=== PATIENT | male | born 1945 | race Caucasian/White ===

== ENCOUNTER → 2020-12-24 09:34 | Outpatient (CLI) | payer MEDICARE, OTHER, SELFPAY ==
--- NOTE | ~2020-12-24 | XR_ITS ---
EXAMINATION: XR chest 2V DATE: 12/24/2020 09:50 INDICATION: Cough TECHNIQUE: PA and lateral views of the chest are obtained. COMPARISON: 11/17/2017 FINDINGS: The lungs are hyperinflated. There is minimal opacity in the right lower lobe posteriorly. There is no pleural effusion or pneumothorax. The cardiomediastinal silhouette is normal. There is mi ld thoracic spondylosis. IMPRESSION: 1. Minimal airspace opacity of the right lower lobe which could reflect atelectasis or pneumonia. Rec ommend followup radiographs in 10-14 days after appropriate therapy to evaluate for improvement/resol ution. Reviewed, dictated and finalized at location B. IMPRESSION: 1. Minimal airspace opacity of the right lower lobe which could reflect atelect asis or pneumonia. Recommend followup radiographs in 10-14 days after appropria te therapy to evaluate for improvement/resolution.
== END ==
PROVIDERS: PCP Family Medicine; Visit Provider Family Medicine
DX: R05 Cough (principal); R91.8 Other nonspecific abnormal finding of lung field
CPT/HCPCS: 71046

== ENCOUNTER → 2021-01-11 09:25 | Outpatient (CLI) | payer MEDICARE, OTHER, SELFPAY ==
--- NOTE | ~2021-01-11 | XR_ITS ---
EXAMINATION: XR chest 2V EXAM DATE: 01/11/2021 09:42 INDICATION: J98.11 - Atelectasis cough, smoker 1ppd. TECHNIQUE: Frontal and lateral projections of the chest obtained and reviewed. Comparison is made to prior examination from 12/24/20. FINDINGS: The lungs are hyperinflated which can be seen with chronic obstructive pulmonary disease ( a clinical diagnosis of functional impairment), but is not diagnostic of it. Right basilar granuloma. Some regions of right upper lobe greater than left scarring, unchanged. Narrow cardiac silhouette. T here are no osseous abnormalities identified. IMPRESSION: 1. Severe chronic hyperinflation. 2. Postinfectious residua. Reviewed, dictated and finalized at location B.
== END ==
PROVIDERS: PCP Nurse Practitioner Family; Visit Provider Nurse Practitioner Family
DX: J98.11 Atelectasis (principal); R05 Cough; R91.8 Other nonspecific abnormal finding of lung field
CPT/HCPCS: 71046

== ENCOUNTER 2024-10-05 09:27 | Inpatient (IN) | payer MEDICARE, OTHER, SELFPAY ==
[2024-10-05] VITALS (13 sets, daily range): BP systolic 104–130; BP diastolic 54–72; PULSE 67–80; RESP 15–29; TEMP 36.6–37.4; O2SAT 84–99; BMI 18.7
--- NOTE | ~2024-10-05 | XR_ITS ---
Portable chest x-ray Comparison: 01/11/2021 Clinical History: Cough, hypoxia Findings: Stable COPD pattern of the lungs. Stable calcified right basilar granuloma. Questionable m ild haziness left midlung. Cardiomediastinal silhouette is stable. Bones and soft tissues are unrema rkable. Impression: Questional subtle left midlung pneumonia. COPD. Reviewed, dictated and finalized at location . ARY TEACHING ASSISTANT Impression: Questional subtle left midlung pneumonia. COPD.
--- OUTSIDE RECORDS SUMMARY | 2024-10-05 09:30 | XMS_ITS | Encounter Summary ---
Author Organization [facility] Address [address] [place] [address] Phone Care Team Providers Care Ultrasound Technologist Name Role Phone Pawan Bansal MD Primary Care Provider Ronald Payne MD Primary Care Provider [phone] Encounter Details Date Type Department Care Team (Latest Contact Info) Description 12/20/2017 Orders Only [facility] CONVERSION Scanning, Provider Social History Tobacco Use Types Packs/Day Years Used Date Smoking Tobacco: Every Day Cigarettes Smokeless Tobacco: Never Alcohol Use Standard Drinks/Week Comments No 0 (1 standard drink = 0.6 oz pur e alcohol) Sex and Gender Information Value Date Recorded Sex Assigned at Not on file Legal Sex Male 12:14 AM [employer]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[employer]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[employer] Gender Identity Not on file Sexual Orientation Not on file documented as of this encounter Plan of Treatment Not on file documented as of this encounter Procedures Procedure Name Priority Date/Time Associated Diagnosis Comments PULMONARY FUNCTION TEST (PFT) 12/20/2017 11:13 AM CDT documented in this encounter Results * PULMONARY FUNCTION TEST (PFT) (12/20/2017 11:13 AM CDT) Anatomical Region Laterality Modality PFT us Provider Scanning PFT ORDERABLES Final Result documented in this encounter Visit Diagnoses Not on filedocumented in this encounter Care Teams Ultrasound Technologist Relationship Specialty Start Date End Date Pawan Bansal MD PCP - General Family Practice 05/25/17 06/15/19 Ronald Payne MD PCP - General Family Medicine 06/16/19 documented as of this encounter
--- OUTSIDE RECORDS SUMMARY | 2024-10-05 09:31 | XMS_ITS | Referral Summary ---
Author Organization [facility] [address] [facility] [address] [place] [address] Care Team Providers Care Osd Clerk Name Role Phone Ronald Payne MD Primary Care Provider [phone] Encounters Date Type Department Care Team Description 09/27/2024 9:30 AM GAMBLING MONITOR Telemedicine [facility] Virtual Care [address] [place] [address] Litzy Jett NP COPD with acute exacerbation (HCC) (Primary Dx) 09/27/2024 Patient Self-Triage [facility] [address] [place] [address] Mychart, Generic Provider 08/11/2024 10:30 AM GAMBLING MONITOR Office Visit [facility] Cardiology [address] [place] [address] Destinee Saldivar NP Coronary arteriosclerosis in [place] artery; Hyperlipidemia associated with type 2 diabetes mellitus (HCC); Lipid screening; 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) 08/01/2024 Telephone [facility] Ophthalmology [facility] [address] [place] [address] Samuel Malone MD from Last 3 Months Allergies No known active allergies Medications aspirin 81 mg tablet take 1 tablet (81MG) by ORAL route every day 0 0 8 Active allopurinol (ZYLOPRIM) 300 mg tablet take 1 tablet (300MG) by oral route every day 0 0 8 Active celecoxib (CeleBREX) 200 mg capsule take 1 capsule (200MG) by oral route every day as needed 0 0 8 Active blood-glucose meter kitIndications: Type 2 diabetes mellitus with hyperglycemia, without long-term current use of insulin (HCC) Use to test once daily 1 each 7 Active blood glucose diagnostic stripIndication s:Type 2 diabetes mellitus with hyperglycemia, without long-term current use of insulin (HCC) Use to test once daily 100 each 2 7 Active VENTOLIN HFA 90 mcg/actuation inhaler INHALE 2 PUFFS BY MOUTH FOUR TIMES DAILY NEEDED 1 Inhaler 5 9 Active Trelegy Ellipta 100-62.5-25 mcg inhaler TAKE 1 PUFF BY MOUTH EVERY DAY 1 each 5 1 Active mirtazapine (REMERON) 15 mg tabletIndicatio ns:sleep Take 1 tablet (15 mg total) by mouth nightly as needed (sleep) 1 Active empagliflozin (Jardiance) 10 mg tablet Take 1 tablet (10 mg total) by mouth daily 90 tablet 3 4 Active Additional Information Patient taking differently:10 mg oralNightly, Informant: Child, Reported on 08/11/2024 atorvastatin (LIPITOR) 40 mg tablet Take 1 tablet (40 mg total) by mouth daily 90 tablet 3 4 Active ramipriL (ALTACE) 5 mg capsule TAKE 1 CAPSULE BY MOUTH EVERY DAY 90 capsule 3 4 Active Additional Information Patient taking differently:oralNightly, Informant: Child, Reported on 08/11/2024 triamcinolone (KENALOG) 0.1 % ointment Apply topically 2 (two) times a day 4 Active albuterol HFA (PROVENTIL HFA,VENTOLIN HFA,PROAIR HFA) 90 mcg/actuation inhaler Inhale 2 puffs every 6 (six) hours as needed for wheezing or shortness of breath 1 each 5 Active azithromycin (ZITHROMAX) 250 mg tablet Take 2 tabs (500 mg) by mouth today, than 1 daily for 4 days. 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 S/P carotid endarterectomy 07/24/2022 CKD stage 3 secondary to diabetes 07/24/2022 Essential hypertension 06/24/2019 Caregiver stress 06/24/2019 Hyperlipidemia associated with type 2 diabetes dutch magdaleno 05/02/2018 Assessment & Plan (11/13/2023 1:19 PM GAMBLING MONITOR): Chronic, with LDL at goal Continue atorvastatin 20 mg daily Assessment & Plan (11/09/2022 12:09 PM GAMBLING MONITOR): Chronic, well controlled Low fat Low cholesterol diet Continue statin therapy with Atorvastatin Assessment & Plan (11/10/2021 10:29 AM GAMBLING MONITOR): Chronic, well controlled Continue current meds Assessment & Plan (04/28/2021 1:13 PM CDT): Lipids were checked today They seem to be at goal Continue with atorvastatin Assessment & Plan (10/21/2020 2:57 PM GAMBLING MONITOR): At goal on current medications. Continue statin therapy. Assessment & Plan (03/04/2020 10:40 AM CDT): Goal of treatment , LDL cholesterol less than 100 ( less than 70 in patients with history of heart attacks and / or strokes ) NonHDL cholesterol ( total cholesterol minus HDL cholesterol ) goal less than 130 ( less than 100 in patients with history of heart attacks and / or strokes ) Low cholesterol, low fat diet was discussed and advised. Daily exercise On statin therapy , with Atorvastatin Assessment & Plan (06/19/2019 10:17 AM CDT): Goal of treatment , LDL cholesterol less than 100 ( less than 70 in patients with history of heart attacks and / or strokes ) NonHDL cholesterol ( total cholesterol minus HDL cholesterol ) goal less than 130 ( less than 100 in patients with history of heart attacks and / or strokes ) Low cholesterol, low fat diet was discussed and advised. Daily exercise Lipid profile checked today LDL within goal Assessment & Plan (11/12/2018 10:59 AM GAMBLING MONITOR): Goal of treatment , LDL cholesterol less than 100 ( less than 70 in patients with history of heart attacks and / or strokes ) NonHDL cholesterol ( total cholesterol minus HDL cholesterol ) goal less than 130 ( less than 100 in patients with history of heart attacks and / or strokes ) Low cholesterol, low fat diet was discussed and advised. Daily exercise On statin therapy Assessment & Plan (05/02/2018 11:30 AM CDT): Goal of treatment , LDL cholesterol less than 100 ( less than 70 in patients with history of heart attacks and / or strokes ) NonHDL cholesterol ( total cholesterol minus HDL cholesterol ) goal less than 130 ( less than 100 in patients with history of heart attacks and / or strokes ) Low cholesterol, low fat diet was discussed and advised. Daily exercise On statin therapy Physical deconditioning 06/06/2016 Moderate COPD (chronic obstructive pulmonary dis ease) 06/06/2016 Chronic obstructive pulmonary disease 05/31/2016 Overview (12/16/2016): Chronic obstructive pulmonary disease, unspecified COPD type Hypercholesterolemia 03/27/2016 Overview (12/14/2016): Hypercholesteremia Assessment & Plan (05/25/2017 5:12 PM CDT): POC lipids today: Total cholesterol 133, LDL 71, TG 115. Lipid abnormalities at goal taking atorvastatin 40 mg daily Dyspnea on exertion 03/27/2016 Overview (12/14/2016): CABEZAS (dyspnea on exertion) Multiple vessel coronary artery disease 03/27/20 16 Overview (12/14/2016): CAD, multiple vessel Presence of stent in coronary artery 03/27/2016 Overview (12/14/2016): Stented coronary artery Tobacco use 02/23/2015 Overview (12/14/2016): Smoker Assessment & Plan (05/25/2017 5:13 PM CDT): Unfortunately patient relapsed and is back to smoking. Has a lot of psychosocial stressors at this time. Old myocardial infarction 02/23/2015 Overview (12/14/2016): Old PA (myocardial infarction) Keratosis, senilis 02/10/2015 Coronary arteriosclerosis in [place] artery 01/24 Overview (12/15/2016): CRNRY ATHRSCL NATVE VSSL Assessment & Plan (05/25/2017 5:11 PM CDT): 2008: IMI and RCA stent 03/2016: Lexiscan negative, EF 56% Stable without angina History of substance abuse ([facility]) 01/24/2014 Overview (12/16/2016): HISTORY OF TOBACCO USE Type 2 diabetes mellitus 08/26/2013 Overview (12/15/2016): DMII WO CMP UNCNTRLD Assessment & Plan (11/13/2023 1:18 PM GAMBLING MONITOR): Chronic, well-controlled Continue Jardiance 10 mg daily Importance of diet and exercise was emphasized Assessment & Plan (11/09/2022 12:08 PM GAMBLING MONITOR): Hba1c was Lab Results Component Value Date HGBA1C 6.2 11/09/2022 today, indicating adequate DM control Goal Hba1c and blood glucose explained Diet and exercise were advised Adjustment to medications: continue Jardiance Assessment & Plan (11/10/2021 10:29 AM GAMBLING MONITOR): Hba1c was Lab Results Component Value Date HGBA1C 6.0 11/10/2021 today, indicating Adequate DM control Goal Hba1c and blood glucose explained Diet and exercise were advised Prevention and treatment of hyypoglcyemia were discussed with the patient Adjustment to medications: continue Jardiance Assessment & Plan (04/28/2021 1:12 PM CDT): Hba1c was Lab Results Component Value Date HGBA1C 6.0 04/28/2021 today, indicating adequate DM control Goals blood sugars of 120-160 and Hba1c under 7 % was explained. 1800 calorie, consistent carb diet recommended, no more than 3-45 grams of carbs per meal, avoiding concentrated sweet drinks and rapid absorption carbs. 25-45 min daily aerobic and resistance exercise recommended No need for BG monitoring Continue with Jardiance Assessment & Plan (10/21/2020 2:58 PM GAMBLING MONITOR): A1c 5.7 without hypoglycemia. No change to current medication. Continue to focus on diet and exercise. Assessment & Plan (03/04/2020 10:42 AM CDT): Hba1c was Lab Results Component Value Date HGBA1C 6.0 03/04/2020 today, indicating adequate DM control 1800 calorie, consistent carb diet recommended, no more than 3-45 grams of carbs per meal, avoiding concentrated sweet drinks and rapid absorption carbs. 25-45 min daily aerobic and resistance exercise recommended Blood glucose monitoring with fingers sticks 1-2 x week Medications: Continue Jardiance ( also indicated due to this CAD ) Assessment & Plan (06/19/2019 10:16 AM CDT): Hba1c was Lab Results Component Value Date HGBA1C 6.0 % 06/19/2019 today, indicating adequate DM control 1800 calorie, consistent carb diet recommended, no more than 3-45 grams of carbs per meal, avoiding concentrated sweet drinks and rapid absorption carbs. 25-45 min daily aerobic and resistance exercise recommended Medications: Continue Jardiance Assessment & Plan (11/12/2018 10:59 AM GAMBLING MONITOR): Hba1c was Lab Results Component Value Date HGBA1C 6.4 05/02/2018 today, indicating adequate DM control 1800 calorie, consistent carb diet recommended 25-45 min daily aerobic and resistance exercise recommended Prevention and treatment of hyypoglcyemia discussed. Blood glucose monitoring with fingers sticks 1-2 x week Oral medications: continue Jardiance Assessment & Plan (05/02/2018 11:30 AM CDT): Hba1c was Lab Results Component Value Date HGBA1C 6.4 05/02/2018 today, indicating adequate DM control 1800 calorie, consistent carb diet recommended 30 min daily aerobic and resistance exercise recommended Assessment & Plan (10/30/2017 2:45 PM GAMBLING MONITOR): Hba1c was 6.0 today, indicating proper DM control 1800 calorie, consistent carb diet recommended 30 min daily aerobic and resistance exercise recommended Blood glucose monitoring with fingers sticks 1-2 x day . Assessment & Plan (07/03/2017 9:55 AM CDT): Hba1c was 6.7 today, indicating Adequate DM control 1800 calorie, consistent carb diet recommended 30 min daily aerobic and resistance exercise recommended Prevention and treatment of hyypoglcyemia discussed. Blood glucose monitoring with fingers sticks 1x day . Foot care was discussed. Because of the history of heart disease, will start Jardiance. 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 ([facility]) 07/12/2021 08/19/2023 Need for immunization against influenza 06/06/2016 06/24/2019 Disorder of lung 06/05/2016 06/24/2019 Former smoker 05/31/2016 05/25/2017 Overview (12/16/2016): Former smoker Hypertension associated with diabetes 03/27/2016 08/06/2023 Overview (12/14/2016): Essential hypertension Assessment & Plan (11/09/2022 12:08 PM GAMBLING MONITOR): Chronic, well controlled Importance of low salt diet and exercise were discussed Continue current meds including Ramipril Update MA Assessment & Plan (11/10/2021 10:33 AM GAMBLING MONITOR): Chronic, well controlled Continue current meds Assessment & Plan (04/28/2021 1:12 PM CDT): Adequately controlled Continue with ramipril Check microalbumin Assessment & Plan (10/21/2020 2:57 PM GAMBLING MONITOR): Controlled on current medications. Continue plan. 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 Assessment & Plan (06/19/2019 10:16 AM CDT): Goal blood pressure is less than 140/85 Low salt diet recommended Daily aerobic exercise Continue current meds, including ESTEFANIA-I or ARB Will check microalbumin Assessment & Plan (11/12/2018 10:59 AM GAMBLING MONITOR): Goal blood pressure is less than 140/85 Low salt diet recommended Daily aerobic exercise Continue current meds, including ESTEFANIA-I or ARB Assessment & Plan (10/30/2017 2:44 PM GAMBLING MONITOR): Goal blood pressure is less than 140/85 Low salt diet recommended Daily aerobic exercise Continue current meds, including ESTEFANIA-I or ARB Assessment & Plan (07/03/2017 9:34 AM CDT): Goal blood pressure is less than 140/85 Low salt diet recommended Daily aerobic exercise Continue current meds, including ESTEFANIA-I or ARB Assessment & Plan (05/25/2017 5:14 PM CDT): Hypertension is at goal on medical therapy Generalized ischemic myocardial dysfunction 03/27/2016 06/24/2019 Overview (12/14/2016): Ischemic cardiomyopathy Assessment & Plan (05/25/2017 5:12 PM CDT): EF 40-45% at the time of his PA, now up to 56%, doing well Tobacco use and exposure - finding 03/27/2016 05/25/2017 Overview (12/14/2016): Use of tobacco in home within the past 12 months Cardiovascular disease 03/27/201605/25 Overview (12/14/2016): CVD (cardiovascular disease) Chronic ischemic heart disease 01/24/2014 06/24/2019 Overview (12/15/2016): CHR ISCHEMIC HRT DIS NOS Pure hypercholesterolemia 01/24/2014 Overview (12/15/2016): PURE HYPERCHOLESTEROLEM Hypertension 08/27/2012 05/25/2017 Overview (12/15/2016): HYPERTENSION NOS Assessment & Plan (05/25/2017 5:13 PM CDT): Hypertension is at goal on medical therapy Mixed hyperlipidemia 08/27/2012 023 Overview (12/16/2016): HYPERLIPIDEMIA NEC/NOS Assessment & Plan (10/30/2017 2:44 PM GAMBLING MONITOR): Goal of treatment , LDL cholesterol less than 100 ( less than 70 in patients with history of heart attacks and / or strokes ) NonHDL cholesterol ( total cholesterol minus HDL cholesterol ) goal less than 130 ( less than 100 in patients with history of heart attacks and / or strokes ) Low cholesterol, low fat diet was discussed and advised. Daily exercise On statin therapy Assessment & Plan (07/03/2017 9:35 AM CDT): Goal of treatment , LDL cholesterol less than 100 ( less than 70 in patients with history of heart attacks and / or strokes ) NonHDL cholesterol goal less than 130 ( less than 100 in patients with history of heart attacks and / or strokes ) Continue statin therapy with Lipitor Immunizations Name Administration Dates Next Due Influenza, Quadrivalent, Spl it, Preservative Free, Intramuscular 06/06/2016 Pneumococcal Conjugate PCV 13 06/06/2016 Social History Tobacco Use Types Packs/Day Years Used Date Smoking Tobacco: Every Day Cigarettes 2 63.1 Started: 1961 Smokeless Tobacco: Never Tobacco Cessation:Ready to Q uit: No Alcohol Use Standard Drinks/Week Comments No 0 (1 standard drink = 0.6 oz pur e alcohol) AUDIT-C Answer Date Recorded Q1: How often do you have a drink containing alcohol? Never 05/27/2024 Q2: How many drinks containi ng alcohol do you have on a typical day when you are drinking? Patient does not drink Q3: How often do you have si x or more drinks on one occasion? Never 05/27/2024 PHQ-2 Answer Date Recorded PHQ-2 Total Score (If total score is 3 or more points, staff should administer the PHQ-9) 0 03/04/2020 Personal Safety Answer Date Recorded Have you ever been in or are you currently in a harmful physical or emotional relationship or is someone making you feel afraid or unsafe? Denies 05/27/2024 Sex and Gender Information Value Date Recorded Sex Assigned at Not on file Legal Sex Male 12:14 AM GAMBLING MONITOR Gender Identity Not on file Sexual Orientation Not on file Last Filed Vital Signs Vital Sign Reading Time Taken Comments Blood Pressure 96/52 08/11/2024 10:32 AM GAMBLING MONITOR Pulse 74 08/11/2024 10:32 AM GAMBLING MONITOR Temperature 35.8 ??C (96.4 ??F) 05/27/2024 9:44 AM CD T Respiratory Rate 16 05/27/2024 1:50 PM CDT Oxygen Saturation 95% 08/11/2024 10:32 AM GAMBLING MONITOR Inhaled Oxygen Concentration - - Weight 64.4 kg (142 lb) 08/11/2024 10:32 AM GAMBLING MONITOR Height 167.6 cm (5' 6 ) 08/11/2024 10:32 AM GAMBLING MONITOR Body Mass Index 22.92 08/11/2024 10:32 AM GAMBLING MONITOR Plan of Treatment Not on file Medical Devices Implanted Type Area Door Slinger Device Identifier Shelf Expiration Date Model / Serial / Lot Stent Implanted:Qty: 1 N/A: Heart Procedures Procedure Name Priority Date/Time Associated Diagnosis Comments POCT LIPID PANEL Routine 08/11/2024 10:3 7 AM GAMBLING MONITOR Lipid screening EGFR Routine 11/13/2023 1:25 PM GAMBLING MONITOR Type 2 diabetes mellitus with hyperglycemia, without long-term current use of insulin ([facility] ([facility]) POCT HEMOGLOBIN A1C Routine 11/13/2023 1 2:40 PM GAMBLING MONITOR Type 2 diabetes mellitus with hyperglycemia, without long-term current use of insulin (CMS/HCC) (HCC) ALBUMIN CREATININE RATIO, URINE Routine 05/30/2021 10:29 AM CDT Hypertension associated with diabetes (HCC) DIABETIC EYE EXAM Routine 11/08/2018 from Last 3 Months or Most Recently Relevant to Health Maintenance Results * POCT lipid panel (08/11/2024 10:37 AM GAMBLING MONITOR) Cholesterol, POC 139 mg/dL HDL, POC 48 mg/dL Triglycerides, POC 80 mg/dL LDL Cholesterol POC 75 mg/dL Chol/HDL Ratio, POC 1.6 Non-HDL Cholesterol, POC 91 mg/dL Cholesterol Total, POC 139 mg/dL Capillary blood 08/11/2024 1 0:37 AM GAMBLING MONITOR Destinee Saldivar NP POINT OF CARE TEST ORDERA BLES Final Result * eGFR (11/13/2023 1:25 PM GAMBLING MONITOR) eGFR 50 mL/min/1. 73 m2 [facility] Comment: Interpretive Data Reference Interval Normal ?>/= 90 mL/min/1.73m2 Mildly decreased* ? 60 - 89 mL/min/1.73m2 Mildly to moderately decreased ?45 - 59 mL/min/1.73m2 Moderately to severely decreased ??30 - 44 mL/min/1.73m2 Severely decreased ?15 - 29 mL/min/1.73m2 Kidney Failure ?< 15 ??mL/min/1.73m2 *Relative to young adult level Estimated glomerular filtration rate is determined by the 2020 CKD-EPI equation recommended by the National Kidney Foundation (A Unifying Approach to GFR Estimation: Recommendations of the NKF-ASK Task Force on Reassessing the Inclusion of Race in Diagnosing Kidney Disease, JASN 2020). The CKD-EPI equation should not be used for patients with unstable renal function and has not been validated in children and those over 70. Current interpretive data was last reviewed 2021. Blood 11/13/2023 1:25 PM GAMBLING MONITOR 11/13/2023 8:18 PM GAMBLING MONITOR Result On License Of [facility] Marcella Wall MD LAB BLOOD ORDERABLES Final Resul t Performing Organization Address City/State/[facility] Phone Number [facility] [id number] [place] [address] * (ABNORMAL) POCT hemoglobin A1c (11/13/2023 12:40 PM GAMBLING MONITOR) Hemoglobin A1C, POC 5.9 % Blood spot 11/13/2023 12:4 0 PM GAMBLING MONITOR Result [facility] Marcella Wall MD POINT OF CARE TEST ORDERABLES Fi nal Result * (ABNORMAL) Albumin Creatinine Ratio, Urine (05/30/2021 10:29 AM CDT) Creatinine, ur 83 20 - 320 mg/dL [facility] Microalbumin, ur 11.8 See Note: mg/dL [facility] Comment: Reference Range: Reference Range Not established Microalbumin/creat ratio 142(H) <30 mcg/mg creat [facility] Comment: The ADA defines abnormalities in albumin excretion as follows: Albuminuria Category ?Result (mcg/mg creatinine) Normal to Mildly increased ?? <30 Moderately increased ? 30-299 Severely increased ? > OR = 300 The ADA recommends that at least two of three specimens collected within a 3-6 month period be abnormal before considering a patient to be within a diagnostic category. Urine 05/30/2021 10:2 9 AM CDT 05/30/2021 10:30 AM CDT Result [facility] Marcella Wall MD LAB URINE ORDERABLES Final Resul t [facility] [id number] [address] [id number] * Diabetic Eye Exam (11/08/2018) us Historical Provider HEALTH MAINTENANCE Edited Result - Final from Last 3 Months or Most Recently Relevant to Health Maintenance Insurance COMMERCIAL GENERIC MEDICARE LOCAL [facility] [employer] SUPPLEMENT Advance Directives For more information, please contact: [phone] Documents on File Type Date Recorded Patient Dramatic Agent Expl anation ADVANCE DIRECTIVE 05/29/2024 2:38 PM POWER OF SALES MANAGER-MEDICAL Care Teams Osd Clerk Relationship Specialty Start Date End Date Ronald Payne MD PCP - General Family Medicine 06/16/19
--- OUTSIDE RECORDS SUMMARY | 2024-10-05 09:31 | XMS_ITS | Clinical Summary ---
Author Organization [facility] [address] Address [address] [place] [address] Care Team Providers Care Sort Worker Name Role Phone Ronald Payne MD Primary Care Provider Allergies No known active allergies Medications aspirin [...] 05/02/2018 Assessment & Plan (11/13/2023 1:19 PM GARMENT SEWING MACHINE OPERATOR): Chronic, with LDL at goal Continue atorvastatin 20 mg daily Assessment & Plan (11/09/2022 12:09 PM GARMENT SEWING MACHINE OPERATOR): Chronic, well controlled Low fat Low cholesterol diet Continue statin therapy with Atorvastatin Assessment & Plan (11/10/2021 10:29 AM GARMENT SEWING MACHINE OPERATOR): Chronic, well controlled Continue current meds Assessment & Plan (04/28/2021 1:13 PM CDT): Lipids were checked today They seem to be at goal Continue with atorvastatin Assessment & Plan (10/21/2020 2:57 PM GARMENT SEWING MACHINE OPERATOR): At goal on current medications. Continue statin [...] goal Assessment & Plan (11/12/2018 10:59 AM GARMENT SEWING MACHINE OPERATOR): Goal of treatment , LDL cholesterol less [...] exertion) Multiple vessel coronary artery disease 03/27/20 Overview (12/14/2016): CAD, multiple vessel Presence of stent in coronary artery 03/27/2016 Overview (12/14/2016): Stented coronary artery Tobacco use 02/23/2015 Overview (12/14/2016): Smoker Assessment & Plan (05/25/2017 5:13 PM CDT): Unfortunately patient relapsed and is back to smoking. Has a lot of psychosocial stressors at this time. Old myocardial infarction 02/23/2015 Overview (12/14/2016): Old [place] (myocardial infarction) Keratosis, senilis 02/10/2015 Coronary arteriosclerosis in [place] artery 01/24 Overview (12/15/2016): CRNRY ATHRSCL NATVE VSSL Assessment & Plan (05/25/2017 5:11 PM CDT): 2008: IMI and RCA stent 03/2016: Lexiscan negative, EF 56% Stable without angina History of substance abuse ([facility]/HCC) 01/24/2014 Overview (12/16/2016): HISTORY OF TOBACCO USE Type 2 diabetes mellitus 08/26/2013 Overview (12/15/2016): DMII WO CMP UNCNTRLD Assessment & Plan (11/13/2023 1:18 PM GARMENT SEWING MACHINE OPERATOR): Chronic, well-controlled Continue Jardiance 10 mg daily Importance of diet and exercise was emphasized Assessment & Plan (11/09/2022 12:08 PM GARMENT SEWING MACHINE OPERATOR): Hba1c was Lab Results Component Value Date HGBA1C 6.2 11/09/2022 today, indicating adequate DM control Goal Hba1c and blood glucose explained Diet and exercise were advised Adjustment to medications: continue Jardiance Assessment & Plan (11/10/2021 10:29 AM GARMENT SEWING MACHINE OPERATOR): Hba1c was Lab Results Component Value Date [...] Jardiance Assessment & Plan (10/21/2020 2:58 PM GARMENT SEWING MACHINE OPERATOR): A1c 5.7 without hypoglycemia. No change to [...] Jardiance Assessment & Plan (11/12/2018 10:59 AM GARMENT SEWING MACHINE OPERATOR): Hba1c was Lab Results Component Value Date [...] recommended Assessment & Plan (10/30/2017 2:45 PM GARMENT SEWING MACHINE OPERATOR): Hba1c was 6.0 today, indicating proper DM [...] due to type 2 di abetes mellitus ([facility]) 07/12/2021 08/19/2023 Need for immunization against influenza 06/06/2016 06/24/2019 Disorder of lung 06/05/2016 06/24/2019 Former smoker 05/31/2016 05/25/2017 Overview (12/16/2016): Former smoker Hypertension associated with diabetes 03/27/2016 08/06/2023 Overview (12/14/2016): Essential hypertension Assessment & Plan (11/09/2022 12:08 PM GARMENT SEWING MACHINE OPERATOR): Chronic, well controlled Importance of low salt diet and exercise were discussed Continue current meds including Ramipril Update MA Assessment & Plan (11/10/2021 10:33 AM GARMENT SEWING MACHINE OPERATOR): Chronic, well controlled Continue current meds Assessment & Plan (04/28/2021 1:12 PM CDT): Adequately controlled Continue with ramipril Check microalbumin Assessment & Plan (10/21/2020 2:57 PM GARMENT SEWING MACHINE OPERATOR): Controlled on current medications. Continue plan. 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 Assessment & Plan (06/19/2019 10:16 AM CDT): Goal blood pressure is less than 140/85 Low salt diet recommended Daily aerobic exercise Continue current meds, including ESTEFANIA-I or ARB Will check microalbumin Assessment & Plan (11/12/2018 10:59 AM GARMENT SEWING MACHINE OPERATOR): Goal blood pressure is less than 140/85 Low salt diet recommended Daily aerobic exercise Continue current meds, including ESTEFANIA-I or ARB Assessment & Plan (10/30/2017 2:44 PM GARMENT SEWING MACHINE OPERATOR): Goal blood pressure is less than 140/85 [...] EF 40-45% at the time of his [place], now up to 56%, doing well Tobacco [...] at goal on medical therapy Mixed hyperlipidemia 08/27/201208/06/ 023 Overview (12/16/2016): HYPERLIPIDEMIA NEC/NOS Assessment & Plan (10/30/2017 2:44 PM GARMENT SEWING MACHINE OPERATOR): Goal of treatment , LDL cholesterol less [...] strokes ) Continue statin therapy with Lipitor Encounters Date Type Department Care Team Description 09/27/2024 9:30 AM GARMENT SEWING MACHINE OPERATOR Telemedicine [facility] Medical Group Virtual Care [address] [place] [id number] Litzy Jett NP COPD with acute exacerbation (HCC) (Primary Dx) 09/27/2024 Patient Self-Triage [facility]/ Physicians [address] [place] [address] Mychart, Generic Provider 08/11/2024 10:30 AM GARMENT SEWING MACHINE OPERATOR Office Visit [facility] Medical [facility] Cardiology [address] [place] [address] Destinee Saldivar NP Coronary arteriosclerosis in [place] artery; Hyperlipidemia associated with type 2 diabetes mellitus (HCC); Lipid screening; 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) 08/01/2024 Telephone [facility] Ophthalmology [facility] [address] [place] [address] Samuel Malone MD from Last 3 Months Immunizations Name Administration Dates Next Due Influenza, Quadrivalent, Spl it, Preservative Free, Intramuscular 06/06/2016 Pneumococcal Conjugate PCV 13 06/06/2016 Surgical History Surgery Date Site/Laterality Comments OTHER SURGICAL HISTORY 05/16/2008 percutaneous transluminal balloon angioplasty with insertion of JOAN to pRCA CAROTID ENARTERECTOMYY 09/10/2010 - 09/09/2011 Right Right Carotid Endarterectomy CATARACT EXTRACTION TONSILLECTOMY child ENTROPION REPAIR 05/27/2024 Left REPAIR ENTROPION (Left: Eye) SHUNT EXTERNALIZATION Medical History Medical History Date Comments Diabetes mellitus (HCC) Diabetes Hyperlipidemia Hyperlipidemia Hypertension Hypertension Hx Other Medical HTN Hx Other Medical dyslipidemia Gout gout Hx Other Medical renal stones Hx Other Medical DM type !! Depression Emphysema of lung (HCC) Heart disease Family History Medical History Relation Name Comments Cancer Brother Oswald Spangler Cancer Father Laura Spangler Cancer Mother Esthela Spangler Other Other No family histo ry of Diabetes mellitus; Anesthesia problems Neg Hx Relation Name Status Comments Brother Oswald Spangler Father Laura Spangler Mother Esthela Spangler Other Social History Tobacco Use Types Packs/Day Years [...] on file Legal Sex Male 12:14 AM GARMENT SEWING MACHINE OPERATOR Gender Identity Not on file Sexual Orientation Not on file Obstetrics History Last Filed Vital Signs Vital Sign Reading Time Taken Comments Blood Pressure 96/52 08/11/2024 10:32 AM GARMENT SEWING MACHINE OPERATOR Pulse 74 08/11/2024 10:32 AM GARMENT SEWING MACHINE OPERATOR Temperature 35.8 ??C (96.4 ??F) 05/27/2024 9:44 AM CD T Respiratory Rate 16 05/27/2024 1:50 PM CDT Oxygen Saturation 95% 08/11/2024 10:32 AM GARMENT SEWING MACHINE OPERATOR Inhaled Oxygen Concentration - - Weight 64.4 kg (142 lb) 08/11/2024 10:32 AM GARMENT SEWING MACHINE OPERATOR Height 167.6 cm (5' 6 ) 08/11/2024 10:32 AM GARMENT SEWING MACHINE OPERATOR Body Mass Index 22.92 08/11/2024 10:32 AM GARMENT SEWING MACHINE OPERATOR Plan of Treatment Health Maintenance Due Date Last Done Comments Hepatitis C Screening 1945 DTaP/Tdap/Td Vaccine (1 - Tdap) 1956 Hepatitis B Screening 11/17/1963 Lung Cancer Screening 11/17/1995 Zoster Vaccine (1 of 2) 11/17/1995 Abdominal Aortic Aneurysm (A AA) Screen 2010 Well Visit 65+ 2010 Pneumococcal vaccine 65+ (2 of 2 - PPSV23 or PCV20) 10/24/2019 08/29/2019, 06/06/2016 Dilated Eye Exam 11/09/2019 11/08/2018, 11/08/2018 Depression Screening 03/04/2021 03/04/2020, 06/19/2019, 11/12/2018, Additional history exists Albumin Creatinine Ratio, Urine 05/30/2022 Foot Exam 11/10/2023 11/09/2022, 04/10, 10/21/2020, Additional history exists Covid-19 Vaccine (2023-2 5 season) 2024 12/08/2020, 11/09/2020 Influenza Vaccine (#1) 2024 11/19/2017, 2015 Hemoglobin A1C 05/15/2024 11/13/2023, 0310/2022, 11/10/2021, Additional history exists eGFR 11/12/2024 11/13/2023, 07/11, 05/05/2020, Additional history exists Fall Risk Assessment 05/27/2025 05/27/2024 Lipid Panel 08/11/2025 08/11/2024, 07/12, 07/28/2022, Additional history exists Medical Devices Implanted Type Area Bogger Operator Device Identifier Shelf Expiration Date Model / Serial / Lot Stent Implanted:Qty: 1 N/A: Heart Procedures Procedure Name Priority Date/Time Associated Diagnosis Comments POCT LIPID PANEL Routine 08/11/2024 10:3 7 AM GARMENT SEWING MACHINE OPERATOR Lipid screening EGFR Routine 11/13/2023 1:25 PM GARMENT SEWING MACHINE OPERATOR Type 2 diabetes mellitus with hyperglycemia, without long-term current use of insulin ([facility]) (HCC) POCT HEMOGLOBIN A1C Routine 11/13/2023 1 2:40 PM GARMENT SEWING MACHINE OPERATOR Type 2 diabetes mellitus with hyperglycemia, without long-term current use of insulin ([facility]) (HCC) ALBUMIN CREATININE RATIO, URINE Routine 05/30/2021 10:29 AM CDT Hypertension associated with diabetes (HCC) DIABETIC EYE EXAM Routine 11/08/2018 from Last 3 Months or Most Recently Relevant to Health Maintenance Results * POCT lipid panel (08/11/2024 10:37 AM GARMENT SEWING MACHINE OPERATOR) Cholesterol, POC 139 mg/dL HDL, POC 48 mg/dL Triglycerides, POC 80 mg/dL LDL Cholesterol POC 75 mg/dL Chol/HDL Ratio, POC 1.6 Non-HDL Cholesterol, POC 91 mg/dL Cholesterol Total, POC 139 mg/dL Capillary blood 08/11/2024 1 0:37 AM GARMENT SEWING MACHINE OPERATOR us Destinee Saldivar NP POINT OF CARE TEST ORDERA BLES Final Result * eGFR (11/13/2023 1:25 PM GARMENT SEWING MACHINE OPERATOR) eGFR 50 mL/min/1. 73 m2 [facility] [place] [...] last reviewed 2021. Blood 11/13/2023 1:25 PM GARMENT SEWING MACHINE OPERATOR 11/13/2023 8:18 PM GARMENT SEWING MACHINE OPERATOR us Marcella Wall MD LAB BLOOD ORDERABLES Final Resul t [facility] [id number] Department [place] [address] * (ABNORMAL) POCT hemoglobin A1c (11/13/2023 12:40 PM GARMENT SEWING MACHINE OPERATOR) Hemoglobin A1C, POC 5.9 % Blood spot 11/13/2023 12:4 0 PM GARMENT SEWING MACHINE OPERATOR us Marcella Wall MD POINT OF CARE TEST [...] 9 AM CDT 05/30/2021 10:30 AM CDT Marcella Wall MD LAB URINE ORDERABLES Final Resul t [facility] [address] [id number] * Diabetic Eye Exam (11/08/2018) us Historical Provider HEALTH MAINTENANCE Edited Result - Final from Last 3 Months or Most Recently Relevant to Health Maintenance Insurance MEDICARE MEDICARE COMMERCIAL GENERIC Member Subscriber Plan / Payer (Ef fective 1969-Present) Name:LAURA SPANGLER JR Relation to Subscriber:Self Name:Laura Spangler Payer ID:[id number] Group ID:Not on file Type:COMMERCIAL Address: [place] [id number] MEDICARE LOCAL [facility] H & W MCR SUPPLEMENT Advance Directives For more information, please contact: [phone] Documents on File Type Date Recorded Patient Theatrical Agent Expl anation ADVANCE DIRECTIVE 05/29/2024 2:38 PM POWER OF WATCH GUARD [employer] Care Teams Sort Worker Relationship Specialty Start Date End Date Ronald Payne MD PCP - General Family Medicine 06/16/19
--- NOTE | 2024-10-05 10:14 | ECG_ITS ---
Test Date: 2024-10-05 12:05:23 Measurements Intervals [place] Rate: 70 P: 76 DC: 160 QRS: -15 QRSD: 109 T: 66 QT: 403 QTc: 435 Interpretive Statements SINUS RHYTHM Poor R wave progression No previous ECG available for comparison Electronically Signed On 10-05-2024 22:04:34 DECORATING INSPECTOR by Kimberly Denis M.D.
[2024-10-05 12:39] LABS: Basophils Absolute Auto 0.1 K/mm3 (0.0-0.1); Basophils Percent Auto 0.6 % (0.2-1.2); Eosinophils Absolute Auto 0.1 K/mm3 (0-0.3); Eosinophils Percent Auto 0.5 % (0-4.4); Hematocrit 45.6 % (42.0-52.0); Hemoglobin 14.9 g/dL (14.0-18.0); Immature Granulocyte Absolute 0.13 K/mm3 (0.00-0.031); Immature Granulocyte Percent A 0.9 % (0-0.5); Lymphocytes Absolute Auto 1.27 K/mm3 (0.9-3.2); Lymphocytes Percent Auto 8.5 % (18.3-44.2); Mean Corpuscular HGB Conc 32.7 g/dl (32-36); Mean Corpuscular Hemoglobin 29.3 pg (26-34); Mean Corpuscular Volume 89.8 fl (80-100); Mean Platelet Volume 9.8 fl (7.4-10.4); Monocytes Absolute Auto 1.3 K/mm3 (0.1-0.6); Monocytes Percent Auto 8.5 % (2.6-8.5); Neutrophils Absolute Auto 12.1 K/mm3 (1.3-6.7); Platelet Count Result 286 k/mm3 (150-375); Red Blood Count 5.08 M/mm3 (4.6-6.20); Red Cell Distribution Width 14.9 % (11.5-14.5); White Blood Count 14.9 K/mm3 (4.5-10.0)
[2024-10-05 12:49] LABS: Alanine Aminotransferase 21 U/L (6-50); Albumin Level 3.5 g/dL (3.5-5.1); Alkaline Phosphatase 95 U/L (38-126); Anion Gap 10 mmol/L (4-12); Aspartate Amino Transferase 21 U/L (17-59); Bilirubin,Total 0.7 mg/dL (0.2-1.3); Blood Urea Nitrogen 19 mg/dL (9-20); Calcium 8.5 mg/dL (8.4-10.2); Carbon Dioxide 25 mmol/L (22-30); Chloride 101 mmol/L (98-107); Estimated CRCL calculation 41 ml/min; Estimated Glomerular Filt Rate > 60; Glucose 137 mg/dL (65-110); Magnesium 2.1 mg/dL (1.6-2.3); Sodium 136 mmol/L (137-145)
[2024-10-05 12:51] LABS: Lactic Acid Reflex 1.1 mmol/L (0.7-2.0)
[2024-10-05 13:00] LABS: NT Pro B Type Natriuretic Pept 1090 pg/mL (19.9-100)
--- OUTSIDE RECORDS SUMMARY | 2024-10-05 13:35 | XMS_ITS | Referral Summary ---
Author Organization [facility] [address] [facility] [address] Address [address] [place] [address] Care Team Providers Care Social Work Supervisor Name Role Phone Ronald Payne MD Primary Care Provider [phone] Encounters Date Type Department Care Team Description 09/27/2024 9:30 AM SAFETY INSTRUCTION POLICE OFFICER Telemedicine [facility] Medical Group Virtual Care [address] [place] [address] Litzy Jett NP COPD with acute exacerbation (HCC) (Primary Dx) 09/27/2024 Patient Self-Triage [facility] HealthCare/ Physicians [address] [place] [address] Mychart, Generic Provider 08/11/2024 10:30 AM SAFETY INSTRUCTION POLICE OFFICER Office Visit [facility] Medical Group Cardiology [address] [place] [address] Destinee Saldivar NP Coronary arteriosclerosis in [place] artery; Hyperlipidemia associated with type 2 diabetes mellitus (HCC); Lipid screening; 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 [address] [place] [address] Samuel Malone MD from Last [...] 05/02/2018 Assessment & Plan (11/13/2023 1:19 PM SAFETY INSTRUCTION POLICE OFFICER): Chronic, with LDL at goal Continue atorvastatin 20 mg daily Assessment & Plan (11/09/2022 12:09 PM SAFETY INSTRUCTION POLICE OFFICER): Chronic, well controlled Low fat Low cholesterol diet Continue statin therapy with Atorvastatin Assessment & Plan (11/10/2021 10:29 AM SAFETY INSTRUCTION POLICE OFFICER): Chronic, well controlled Continue current meds Assessment & Plan (04/28/2021 1:13 PM CDT): Lipids were checked today They seem to be at goal Continue with atorvastatin Assessment & Plan (10/21/2020 2:57 PM SAFETY INSTRUCTION POLICE OFFICER): At goal on current medications. Continue statin [...] goal Assessment & Plan (11/12/2018 10:59 AM SAFETY INSTRUCTION POLICE OFFICER): Goal of treatment , LDL cholesterol less [...] Old myocardial infarction 02/23/2015 Overview (12/14/2016): Old [place] (myocardial infarction) Keratosis, senilis 02/10/2015 Coronary arteriosclerosis in [place] artery 01/24 Overview (12/15/2016): CRNRY ATHRSCL NATVE VSSL Assessment & Plan (05/25/2017 5:11 PM CDT): 2008: IMI and RCA stent 03/2016: Lexiscan negative, EF 56% Stable without angina History of substance abuse ([facility]) 01/24/2014 Overview (12/16/2016): HISTORY OF TOBACCO USE Type 2 diabetes mellitus 08/26/2013 Overview (12/15/2016): DMII WO CMP UNCNTRLD Assessment & Plan (11/13/2023 1:18 PM SAFETY INSTRUCTION POLICE OFFICER): Chronic, well-controlled Continue Jardiance 10 mg daily Importance of diet and exercise was emphasized Assessment & Plan (11/09/2022 12:08 PM SAFETY INSTRUCTION POLICE OFFICER): Hba1c was Lab Results Component Value Date HGBA1C 6.2 11/09/2022 today, indicating adequate DM control Goal Hba1c and blood glucose explained Diet and exercise were advised Adjustment to medications: continue Jardiance Assessment & Plan (11/10/2021 10:29 AM SAFETY INSTRUCTION POLICE OFFICER): Hba1c was Lab Results Component Value Date [...] Jardiance Assessment & Plan (10/21/2020 2:58 PM SAFETY INSTRUCTION POLICE OFFICER): A1c 5.7 without hypoglycemia. No change to [...] Jardiance Assessment & Plan (11/12/2018 10:59 AM SAFETY INSTRUCTION POLICE OFFICER): Hba1c was Lab Results Component Value Date [...] recommended Assessment & Plan (10/30/2017 2:45 PM SAFETY INSTRUCTION POLICE OFFICER): Hba1c was 6.0 today, indicating proper DM [...] due to type 2 di abetes mellitus ([facility]) 07/12/2021 08/19/2023 Need for immunization against influenza 06/06/2016 06/24/2019 Disorder of lung 06/05/2016 06/24/2019 Former smoker 05/31/2016 05/25/2017 Overview (12/16/2016): Former smoker Hypertension associated with diabetes 03/27/2016 08/06/2023 Overview (12/14/2016): Essential hypertension Assessment & Plan (11/09/2022 12:08 PM SAFETY INSTRUCTION POLICE OFFICER): Chronic, well controlled Importance of low salt diet and exercise were discussed Continue current meds including Ramipril Update MA Assessment & Plan (11/10/2021 10:33 AM SAFETY INSTRUCTION POLICE OFFICER): Chronic, well controlled Continue current meds Assessment & Plan (04/28/2021 1:12 PM CDT): Adequately controlled Continue with ramipril Check microalbumin Assessment & Plan (10/21/2020 2:57 PM SAFETY INSTRUCTION POLICE OFFICER): Controlled on current medications. Continue plan. 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 Assessment & Plan (06/19/2019 10:16 AM CDT): Goal blood pressure is less than 140/85 Low salt diet recommended Daily aerobic exercise Continue current meds, including ESTEFANIA-I or ARB Will check microalbumin Assessment & Plan (11/12/2018 10:59 AM SAFETY INSTRUCTION POLICE OFFICER): Goal blood pressure is less than 140/85 Low salt diet recommended Daily aerobic exercise Continue current meds, including ESTEFANIA-I or ARB Assessment & Plan (10/30/2017 2:44 PM SAFETY INSTRUCTION POLICE OFFICER): Goal blood pressure is less than 140/85 [...] EF 40-45% at the time of his [place], now up to 56%, doing well Tobacco [...] NEC/NOS Assessment & Plan (10/30/2017 2:44 PM SAFETY INSTRUCTION POLICE OFFICER): Goal of treatment , LDL cholesterol less [...] on file Legal Sex Male 12:14 AM SAFETY INSTRUCTION POLICE OFFICER Gender Identity Not on file Sexual Orientation Not on file Last Filed Vital Signs Vital Sign Reading Time Taken Comments Blood Pressure 96/52 08/11/2024 10:32 AM SAFETY INSTRUCTION POLICE OFFICER Pulse 74 08/11/2024 10:32 AM SAFETY INSTRUCTION POLICE OFFICER Temperature 35.8 ??C (96.4 ??F) 05/27/2024 9:44 AM CD T Respiratory Rate 16 05/27/2024 1:50 PM CDT Oxygen Saturation 95% 08/11/2024 10:32 AM SAFETY INSTRUCTION POLICE OFFICER Inhaled Oxygen Concentration - - Weight 64.4 kg (142 lb) 08/11/2024 10:32 AM SAFETY INSTRUCTION POLICE OFFICER Height 167.6 cm (5' 6 ) 08/11/2024 10:32 AM SAFETY INSTRUCTION POLICE OFFICER Body Mass Index 22.92 08/11/2024 10:32 AM SAFETY INSTRUCTION POLICE OFFICER Plan of Treatment Not on file Medical Devices Implanted Type Area Die Cast Engineer Device Identifier Shelf Expiration Date Model / Serial / Lot Stent Implanted:Qty: 1 N/A: Heart Procedures Procedure Name Priority Date/Time Associated Diagnosis Comments POCT LIPID PANEL Routine 08/11/2024 10:3 7 AM SAFETY INSTRUCTION POLICE OFFICER Lipid screening EGFR Routine 11/13/2023 1:25 PM SAFETY INSTRUCTION POLICE OFFICER Type 2 diabetes mellitus with hyperglycemia, without long-term current use of insulin ([facility]) ([facility]) POCT HEMOGLOBIN A1C Routine 11/13/2023 1 2:40 PM SAFETY INSTRUCTION POLICE OFFICER Type 2 diabetes mellitus with hyperglycemia, without long-term current use of insulin (CMS/HCC) (HCC) ALBUMIN CREATININE RATIO, URINE Routine 05/30/2021 10:29 AM CDT Hypertension associated with diabetes (HCC) DIABETIC EYE EXAM Routine 11/08/2018 from Last 3 Months or Most Recently Relevant to Health Maintenance Results * POCT lipid panel (08/11/2024 10:37 AM SAFETY INSTRUCTION POLICE OFFICER) Cholesterol, POC 139 mg/dL HDL, POC 48 mg/dL Triglycerides, POC 80 mg/dL LDL Cholesterol POC 75 mg/dL Chol/HDL Ratio, POC 1.6 Non-HDL Cholesterol, POC 91 mg/dL Cholesterol Total, POC 139 mg/dL Capillary blood 08/11/2024 1 0:37 AM SAFETY INSTRUCTION POLICE OFFICER Destinee Saldivar NP POINT OF CARE TEST ORDERA BLES Final Result * eGFR (11/13/2023 1:25 PM SAFETY INSTRUCTION POLICE OFFICER) eGFR 50 mL/min/1. 73 m2 [facility] [place] [...] last reviewed 2021. Blood 11/13/2023 1:25 PM SAFETY INSTRUCTION POLICE OFFICER 11/13/2023 8:18 PM SAFETY INSTRUCTION POLICE OFFICER Result [facility]ending [facility] us Marcella Wall MD LAB BLOOD ORDERABLES Final Resul t Performing Organization Address City/State/[facility] Phone Number [facility] [place] [address] Department [place] [address] * (ABNORMAL) POCT hemoglobin A1c (11/13/2023 12:40 PM SAFETY INSTRUCTION POLICE OFFICER) Hemoglobin A1C, POC 5.9 % Blood spot 11/13/2023 12:4 0 PM SAFETY INSTRUCTION POLICE OFFICER Result [facility] Marcella Wall MD POINT OF CARE [...] AM CDT 05/30/2021 10:30 AM CDT Result [facility] Marcella Wall MD LAB URINE ORDERABLES Final Resul t [facility] [address] [id number] * Diabetic Eye Exam (11/08/2018) us Historical Provider HEALTH MAINTENANCE Edited Result - Final from Last 3 Months or Most Recently Relevant to Health Maintenance Insurance COMMERCIAL GENERIC MEDICARE LOCAL [facility] H & W MCR SUPPLEMENT Advance Directives For more information, please contact: [phone] Documents on File Type Date Recorded Patient Checker Bakery Products Expl anation ADVANCE DIRECTIVE 05/29/2024 2:38 PM POWER OF FOREIGN BROADCAST SPECIALIST-MEDICAL Care Teams Social Work Supervisor Relationship Specialty Start Date End Date Ronald Payne MD PCP - General Family Medicine 06/16/19
--- OUTSIDE RECORDS SUMMARY | 2024-10-05 13:35 | XMS_ITS | Encounter Summary ---
Author Organization [facility] Address [address] [place] [address] Phone Care Team Providers Care Bracelet Form Coverer Name Role Phone Pawan Bansal MD Primary Care Provider Ronald Payne MD Primary Care Provider [phone] Encounter Details Date Type Department Care Team [...] on file Legal Sex Male 12:14 AM LEAD DESIGNER Gender Identity Not on file Sexual Orientation [...] on filedocumented in this encounter Care Teams Bracelet Form Coverer Relationship Specialty Start Date End Date Pawan Bansal MD PCP - General Family Practice 05/25/17 06/15/19 Ronald Payne MD PCP - General Family Medicine 06/16/19 documented as of this encounter
--- OUTSIDE RECORDS SUMMARY | 2024-10-05 13:35 | XMS_ITS | Clinical Summary ---
Author Organization [facility] [place] [address] Address [address] [place] [address] Care Team Providers Care Agronomy Professor Name Role Phone Ronald Payne MD Primary [...] 05/02/2018 Assessment & Plan (11/13/2023 1:19 PM BAG MENDER): Chronic, with LDL at goal Continue atorvastatin 20 mg daily Assessment & Plan (11/09/2022 12:09 PM BAG MENDER): Chronic, well controlled Low fat Low cholesterol diet Continue statin therapy with Atorvastatin Assessment & Plan (11/10/2021 10:29 AM BAG MENDER): Chronic, well controlled Continue current meds Assessment & Plan (04/28/2021 1:13 PM CDT): Lipids were checked today They seem to be at goal Continue with atorvastatin Assessment & Plan (10/21/2020 2:57 PM BAG MENDER): At goal on current medications. Continue statin [...] goal Assessment & Plan (11/12/2018 10:59 AM BAG MENDER): Goal of treatment , LDL cholesterol less [...] Old myocardial infarction 02/23/2015 Overview (12/14/2016): Old LA (myocardial infarction) Keratosis, senilis 02/10/2015 Coronary arteriosclerosis in [place] artery 01/24 Overview (12/15/2016): CRNRY ATHRSCL NATVE VSSL Assessment & Plan (05/25/2017 5:11 PM CDT): 2008: IMI and RCA stent 03/2016: Lexiscan negative, EF 56% Stable without angina History of substance abuse ([facility]/HCC) 01/24/2014 Overview (12/16/2016): HISTORY OF TOBACCO USE Type 2 diabetes mellitus 08/26/2013 Overview (12/15/2016): DMII WO CMP UNCNTRLD Assessment & Plan (11/13/2023 1:18 PM BAG MENDER): Chronic, well-controlled Continue Jardiance 10 mg daily Importance of diet and exercise was emphasized Assessment & Plan (11/09/2022 12:08 PM BAG MENDER): Hba1c was Lab Results Component Value Date HGBA1C 6.2 11/09/2022 today, indicating adequate DM control Goal Hba1c and blood glucose explained Diet and exercise were advised Adjustment to medications: continue Jardiance Assessment & Plan (11/10/2021 10:29 AM BAG MENDER): Hba1c was Lab Results Component Value Date [...] Jardiance Assessment & Plan (10/21/2020 2:58 PM BAG MENDER): A1c 5.7 without hypoglycemia. No change to [...] Jardiance Assessment & Plan (11/12/2018 10:59 AM BAG MENDER): Hba1c was Lab Results Component Value Date [...] recommended Assessment & Plan (10/30/2017 2:45 PM BAG MENDER): Hba1c was 6.0 today, indicating proper DM [...] due to type 2 di abetes mellitus ([facility]) 07/12/2021 08/19/2023 Need for immunization against influenza 06/06/2016 06/24/2019 Disorder of lung 06/05/2016 06/24/2019 Former smoker 05/31/2016 05/25/2017 Overview (12/16/2016): Former smoker Hypertension associated with diabetes 03/27/2016 08/06/2023 Overview (12/14/2016): Essential hypertension Assessment & Plan (11/09/2022 12:08 PM BAG MENDER): Chronic, well controlled Importance of low salt diet and exercise were discussed Continue current meds including Ramipril Update MA Assessment & Plan (11/10/2021 10:33 AM BAG MENDER): Chronic, well controlled Continue current meds Assessment & Plan (04/28/2021 1:12 PM CDT): Adequately controlled Continue with ramipril Check microalbumin Assessment & Plan (10/21/2020 2:57 PM BAG MENDER): Controlled on current medications. Continue plan. 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 Assessment & Plan (06/19/2019 10:16 AM CDT): Goal blood pressure is less than 140/85 Low salt diet recommended Daily aerobic exercise Continue current meds, including ESTEFANIA-I or ARB Will check microalbumin Assessment & Plan (11/12/2018 10:59 AM BAG MENDER): Goal blood pressure is less than 140/85 Low salt diet recommended Daily aerobic exercise Continue current meds, including ESTEFANIA-I or ARB Assessment & Plan (10/30/2017 2:44 PM BAG MENDER): Goal blood pressure is less than 140/85 [...] EF 40-45% at the time of his LA, now up to 56%, doing well Tobacco [...] NEC/NOS Assessment & Plan (10/30/2017 2:44 PM BAG MENDER): Goal of treatment , LDL cholesterol less [...] Department Care Team Description 09/27/2024 9:30 AM BAG MENDER Telemedicine [facility] Virtual Care [address] [place] [id number] Litzy Jett NP COPD with acute exacerbation (HCC) (Primary Dx) 09/27/2024 Patient Self-Triage [facility] [address] [place] [address] Mychart, Generic Provider 08/11/2024 10:30 AM BAG MENDER Office Visit [facility] Medical [facility] [address] [place] [address] Destinee Saldivar NP Coronary arteriosclerosis in [place] artery; Hyperlipidemia associated with type 2 diabetes mellitus (HCC); Lipid screening; 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) 08/01/2024 Telephone [facility] Ophthalmology [facility] [address] [place] [address] Samuel Malone MD from Last [...] on file Legal Sex Male 12:14 AM BAG MENDER Gender Identity Not on file Sexual Orientation Not on file Obstetrics History Last Filed Vital Signs Vital Sign Reading Time Taken Comments Blood Pressure 96/52 08/11/2024 10:32 AM BAG MENDER Pulse 74 08/11/2024 10:32 AM BAG MENDER Temperature 35.8 ??C (96.4 ??F) 05/27/2024 9:44 AM CD T Respiratory Rate 16 05/27/2024 1:50 PM CDT Oxygen Saturation 95% 08/11/2024 10:32 AM BAG MENDER Inhaled Oxygen Concentration - - Weight 64.4 kg (142 lb) 08/11/2024 10:32 AM BAG MENDER Height 167.6 cm (5' 6 ) 08/11/2024 10:32 AM BAG MENDER Body Mass Index 22.92 08/11/2024 10:32 AM BAG MENDER Plan of Treatment Health Maintenance Due Date [...] history exists Medical Devices Implanted Type Area Processing Analyst Device Identifier Shelf Expiration Date Model / Serial / Lot Stent Implanted:Qty: 1 N/A: Heart Procedures Procedure Name Priority Date/Time Associated Diagnosis Comments POCT LIPID PANEL Routine 08/11/2024 10:3 7 AM BAG MENDER Lipid screening EGFR Routine 11/13/2023 1:25 PM BAG MENDER Type 2 diabetes mellitus with hyperglycemia, without long-term current use of insulin ([facility]) (HCC) POCT HEMOGLOBIN A1C Routine 11/13/2023 1 2:40 PM BAG MENDER Type 2 diabetes mellitus with hyperglycemia, without long-term current use of insulin ([facility]) (HCC) ALBUMIN CREATININE RATIO, URINE Routine 05/30/2021 10:29 AM CDT Hypertension associated with diabetes (HCC) DIABETIC EYE EXAM Routine 11/08/2018 from Last 3 Months or Most Recently Relevant to Health Maintenance Results * POCT lipid panel (08/11/2024 10:37 AM BAG MENDER) Cholesterol, POC 139 mg/dL HDL, POC 48 mg/dL Triglycerides, POC 80 mg/dL LDL Cholesterol POC 75 mg/dL Chol/HDL Ratio, POC 1.6 Non-HDL Cholesterol, POC 91 mg/dL Cholesterol Total, POC 139 mg/dL Capillary blood 08/11/2024 1 0:37 AM BAG MENDER us Destinee Saldivar NP POINT OF CARE TEST ORDERA BLES Final Result * eGFR (11/13/2023 1:25 PM BAG MENDER) eGFR 50 mL/min/1. 73 m2 [facility] [...] last reviewed 2021. Blood 11/13/2023 1:25 PM BAG MENDER 11/13/2023 8:18 PM BAG MENDER us Marcella Wall MD LAB BLOOD ORDERABLES Final Resul t [facility] [address] Department [place] [address] * (ABNORMAL) POCT hemoglobin A1c (11/13/2023 12:40 PM BAG MENDER) Hemoglobin A1C, POC 5.9 % Blood spot 11/13/2023 12:4 0 PM BAG MENDER us Marcella Wall MD POINT OF CARE [...] LAB URINE ORDERABLES Final Resul t [facility] [address] [id number] * Diabetic Eye Exam (11/08/2018) us Historical Provider HEALTH MAINTENANCE Edited Result - Final from Last 3 Months or Most Recently Relevant to Health Maintenance Insurance MEDICARE MEDICARE COMMERCIAL GENERIC Member Subscriber Plan / Payer (Ef fective 1969-Present) Name:LAURA SPANGLER JR Relation to Subscriber:Self Name:Laura Spangler Payer ID:[id number] Group ID:Not on file Type:COMMERCIAL Address: [place] [id number] MEDICARE LOCAL [facility] SUPPLEMENT Advance Directives For more information, please contact: [phone] Documents on File Type Date Recorded Patient Pricer Bagger Expl anation ADVANCE DIRECTIVE 05/29/2024 2:38 PM POWER OF SHIPPING ASSOCIATE-MEDICAL Care Teams Agronomy Professor Relationship Specialty Start Date End Date Ronald Payne MD PCP - General Family Medicine 06/16/19
[2024-10-05] MEDS: DOXYCYCLINE HYCLATE 100 MG TABLET PO (13:36)
[2024-10-05] MEDS: ALBUTEROL SULFATE NEB 2.5 MG/3 ML INH 10 MG INHALATION (13:53)
[2024-10-05] MEDS: IPRATROPIUM BR 0.02% INH SOLN 0.5 MG/2.5 ML VIAL 1 MG INHALATION (13:54)
--- NOTE | 2024-10-05 13:55 | P.HP_ITS ---
H&P: HPI History of Present Illness Date/Time: 10/05/24 13:55 Chief Complaint: Shortness of breath Narrative: 70-year-old male past medical history of COPD, diabetes mellitus, hypertension and coronary artery disease presents the hospital with shortness of breath. Patient states that he has been dealing with a cough for the last week and was on azithromycin and steroids however it did not improve so he came to the hospital for shortness of breath. Patient denies fevers nausea or vomiting. Patient states that his is home on hospice. Lab work showed leukocytosis of 14.9, BNP of 1090, influenza A/B, and COVID negative, RSV positive, chest x-ray shows questionable subtle left lung pneumonia. EKG shows sinus rhythm. Patient was slightly hypoxic and placed on 2 L nasal cannula. He was given Rocephin and doxycycline. And breathing treatments. Blood cultures pending. Review of Systems Review of Systems: 12 systems were reviewed and are negativ e except for as per HPI. [facility] Past Medical History Medical History Chronic eczema of foot COPD (chronic obstructive pulmonary disease) Cataract Cough Insomnia Screening for prostate cancer Tobacco abuse Diabetes mellitus High blood pressure Coronary artery disease Gout Family History Family History Father No problems noted. Mother No problems noted. Sibling No problems noted. Other Diabetes mellitus Family history of arthritis Family history of gout Social History Social History Smoking packs per day: 1 Smoking cigarettes per day: 20.0 Years smoked: 60 Smoking pack-years: 60.00 Smoking status: Current every day smoker Tobacco type: cigarettes Alcohol intake: never Do You Feel Safe in your Home?: Yes Lack of Transportation: No Lack of Food: Never True Current Housing: I Have Housing Concerned About Future Housing: No Difficulty Paying Gas/Electric Bills: No Difficulty Paying for Meds: No Currently Unemployed: No Education: High School Diploma/GED Difficulty w/ Childcare or Family Care: No Spiritual care concerns: No Meds Home Medications and Allergies Home Medications ?Medication ?Instructions ?Recorded ?Confirmed ?Type atorvastatin 40 mg tablet 40 mg PO DAILY 08/28/19 10/05/24 History empagliflozin 10 mg tablet 10 mg PO DAILY 08/28/19 10/05/24 History (Jardiance) ramipril 10 mg capsule 10 mg PO DAILY 08/28/19 10/05/24 History sildenafil 100 mg tablet (Viagra) 100 mg PO DAILY PRN ED 08/28/19 10/05/24 History celecoxib 200 mg capsule (Celebrex) 200 mg PO DAILY #90 caps 08/29/19 10/05/24 Rx aspirin 81 mg tablet,delayed 81 mg PO DAILY 02/24/22 10/05/24 History release (Adult Aspirin Regimen) allopurinol 300 mg tablet See Rx Instructions .Route 04/27/24 10/05/24 Rx .COMPLEX #90 tabs triamcinolone acetonide 0.1 % 1 applic topical BID #80 grams 04/27/24 10/05/24 Rx topical ointment mirtazapine 15 mg tablet 15 mg PO QHS #90 tabs 05/05/24 10/05/24 Rx fluticasone fur. 100 mcg-umeclid 1 inh inhalation DAILY #180 ea 09/04/24 10/05/24 Rx 62.5 mcg-vilant 25 mcg inhalat.powder (Trelegy Ellipta) Allergies Allergy/AdvReac Type Severity Reaction Status Date / Time No Known Allergies Allergy Verified 10/05/24 09:28 Vital Signs Vital Signs - 24 hr 10/05/24 09:33 10/05/24 09:42 10/05/24 11:48 Temperature 97.9 F Pulse Rate 80 71 Respiratory Rate 20 15 Blood Pressure 130/72 109/62 Pulse Oximetry 84 L 95 96 Oxygen Delivery Room Air Nasal Cannula Oxygen Flow Rate 3 10/05/24 13:27 Temperature Pulse Rate Respiratory Rate Blood Pressure Pulse Oximetry 96 Oxygen Delivery Nasal Cannula Oxygen Flow Rate 2 Exam Narrative: General: well appearing, appears stated age. HEENT: normocephalic, atraumatic. Mucous membranes moist. EOMI, PERRLA, bilateral sclera anicteric, no conjunctival injection. Neck supple without JVD, lymphadenopathy, or bruit. Respiratory: Coarse with wheezes Cardiovascular: Regular rate and rhythm, normal S1-S2 upon ascultation. No murmurs, rubs, or clicks. PMI is nondisplaced, capillary refill less than 3 second. Abdomen: Soft, round, no pulsatile masses, nondistended and nontender. No r ebound, no guarding. No CVA tenderness, no hepatosplenomegaly. Bowel sounds present to all four quadrants. No high pitch or tinkling sounds, resonant to percussion. Extremities: No cyanosis, clubbing, or edema present. Pulses are palpable 2/2. Active ROM to all four extremities. Neuro: Alert and orientated x 4. PERRLA. Cranial nerves 2-12 intact without focal deficit. Skin: Warm, dry, and intact, without rash, erythema, or lesion. Psych: pleasant, cooperative, normal speech, normal affect, no hallucinations, no dysarthia H&P: Results Labs Labs: Short CBC 10/05/24 Range/Units 12:23 WBC 14.9 H (4.5-10.0) K/mm3 Hgb 14.9 (14.0-18.0) g/dL Hct 45.6 (42.0-52.0) % Plt Count 286 (150-375) k/mm3 BMP 10/05/24 12:23 Sodium 136 L Potassium 4.0 Chloride 101 Carbon Dioxide 25 BUN 19 Creatinine 1.12 Glucose 137 H Calcium 8.5 Liver Function 10/05/24 Range/Units 12:23 Total Bilirubin 0.7 (0.2-1.3) mg/dL AST 21 (17-59) U/L ALT 21 (6-50) U/L Alkaline Phosphatase 95 (38-126) U/L Albumin 3.5 (3.5-5.1) g/dL Assessment and Plan Assessment and plan (1) Pneumonia: Code(s): J18.9 - Pneumonia, unspecified organism Status: Acute Assessment and Plan: COPD exacerbation Breathing treatments On IV Rocephin and p.o. doxycycline, failed azithromycin Guaifenesin Steroids (2) Coronary artery disease: Code(s): I25.10 - Atherosclerotic heart disease of [place] coronary artery without angina pectoris Status: Acute Assessment and Plan: Continue home aspirin, statin (3) Diabetes mellitus: Qualifiers: Diabetes mellitus complication status: without complication Diabetes mellitus jail insulin use: without jail use Diabetes mellitus type: type 2 Qualified Code(s): E11.9 - Type 2 diabetes mellitus without complications Code(s): E11.9 - Type 2 diabetes mellitus without complications Status: Acute Assessment and Plan: Diabetic diet Accu-Cheks a.c. HS SSI Hemoglobin A1c pending Hold home anti-hyperglycemic medications (4) High blood pressure: Qualifiers: Hypertension type: essential hypertension Qualified Code(s): I10 - Essential (primary) hypertension Code(s): I10 - Essential (primary) hypertension Status: Acute Assessment and Plan: Restart home antihypertensive Quality VTE Prophylaxis VTE prophylaxis: mechanical ordered and pharmacologic ordered Hospitalist MIPS Advance Care Plan I have confirmed that the patient's Advanced Care Plan is present, code status is documented, or surrogate decision maker is listed in patient medical record.: Yes Medication Reconciliation I have utilized all available resources to obtain, update and review the patients current medications (includes all prescriptions, OTC, herbals, cannabis, and nutritional supplements).: Yes
[2024-10-05 14:11] LABS: Influenza A QL RT-PCR Negative (Negative); Influenza B QL RT-PCR Negative (Negative); RSV RNA, RT-PCR Positive (Negative); SARS-CoV-2 RNA PCR Negative (Negative)
--- NOTE | 2024-10-05 14:35 | ED_ITS ---
HPI - SOB/Dyspnea General Chief Complaint: Shortness of Breath/Dyspnea Stated Complaint: sob , cough Time Seen by Provider: 10/05/24 13:15 History of Present Illness HPI Narrative: Patient with history of COPD who had been dealing with a cough for the past week and had already completed a course of steroids and azithromycin presents here due to increasing shortness of breath. Related Data Home Medications ?Medication ?Instructions ?Recorded ?Confirmed ?Last Taken ?Type atorvastatin 40 mg tablet 40 mg PO DAILY 08/28/19 02/09/23 Unknown History carvedilol 6.25 mg tablet 6.25 mg PO Q12H 08/28/19 02/09/23 Unknown History empagliflozin 10 mg tablet 10 mg PO DAILY 08/28/19 02/09/23 Unknown History (Jardiance) ramipril 10 mg capsule 10 mg PO DAILY 08/28/19 02/09/23 Unknown History sildenafil 100 mg tablet (Viagra) 100 mg PO DAILY PRN 08/28/19 02/09/23 Unknown History aspirin 81 mg tablet,delayed 81 mg PO DAILY 02/24/22 02/09/23 Unknown History release (Adult Aspirin Regimen) Allergies Allergy/AdvReac Type Severity Reaction Status Date / Time No Known Allergies Allergy Verified 10/05/24 09:28 Review of Systems 2 Review of Systems: All systems reviewed & are unremarkable except as noted in HPI and below PMFSH Past Medical History Medical History Cataract Chronic eczema of foot COPD (chronic obstructive pulmonary disease) Coronary artery disease Cough Diabetes mellitus Gout High blood pressure Insomnia Screening for prostate cancer Tobacco abuse Family History Family History Father No problems noted. Mother No problems noted. Sibling No problems noted. Other Diabetes mellitus Family history of arthritis Family history of gout Social History Social History Smoking status: Current every day smoker Tobacco type: cigarettes Alcohol intake: never Exam 2 Narrative: EXAMINATION OF ORGAN SYSTEMS/BODY AREAS: Constitutional: Vital signs per nursing GENERAL:[No acute distress, non-toxic appearing.] HEAD: Normal with no signs of head trauma. EYES: EOMI, conjunctiva normal ENT: Hearing grossly intact LUNGS: Nonlabored breathing. Some diminished breath sounds bilaterally. HEART: [Regular rate and rhythm] ABD: [Soft], [nontender to palpation] EXT: Normal range of motion SKIN: [No rashes or lesions.] NEURO: [Alert and oriented x 3. No gross focal sensory or strength deficits.] PSYCH: Normal affect Course Vital Signs Vital signs: Vital Signs Temperature 97.9 F 10/05/24 09:33 Pulse Rate 80 10/05/24 09:33 Respiratory Rate 20 10/05/24 09:33 Blood Pressure 130/72 10/05/24 09:33 Pulse Oximetry 84 L 10/05/24 09:33 Oxygen Delivery Room Air 10/05/24 09:33 Temperature 97.9 F 10/05/24 09:33 Pulse Rate 73 10/05/24 13:21 Respiratory Rate 18 10/05/24 13:21 Blood Pressure 120/70 10/05/24 13:21 Pulse Oximetry 96 10/05/24 13:27 Oxygen Delivery Nasal Cannula 10/05/24 13:27 Oxygen Flow Rate 2 10/05/24 13:27 MDM - SOB/Dyspnea MDM Narrative Medical decision making narrative: Patient presents here with increased shortness of breath and recent cough, already completed azithromycin and steroids, he is hypoxic here on room air to the 80s requiring 3 L of oxygen. I do suspect he has COPD or pneumonia with failed outpatient antibiotics. Breathing treatment started, antibiotics started, he did test positive for RSV here. WBC elevated but this may be from steroids. EKG on my independent interpretation here shows normal sinus rhythm rate 70, normal NV, QRS, QTC, no ST elevation or depression. No obvious signs of acute ischemia or arrhythmia Chest x-ray on my independent interpretation shows hyperinflated lungs consistent with COPD, potentially increased reticular markings. Discussed with hospitalist for admission. Patient unhappy to be admitted but is ultimately agreeable, daughter at bedside agreeable to plan. Lab Data 10/05/24 12:23 10/05/24 12:23 Labs: Lab Results 10/05/24 10/05/24 Range/Units 12:23 13:30 WBC 14.9 H (4.5-10.0) K/mm3 RBC 5.08 (4.6-6.20) M/mm3 Hgb 14.9 (14.0-18.0) g/dL Hct 45.6 (42.0-52.0) % MCV 89.8 (80-100) fl MCH 29.3 (26-34) pg MCHC 32.7 (32-36) g/dl RDW 14.9 H (11.5-14.5) % Plt Count 286 (150-375) k/mm3 MPV 9.8 (7.4-10.4) fl Immature Gran % (Auto) 0.9 H (0-0.5) % Neut % (Auto) 81.0 H (45.5-73.1) % Lymph % (Auto) 8.5 L (18.3-44.2) % [place] % (Auto) 8.5 (2.6-8.5) % Eos % (Auto) 0.5 (0-4.4) % Baso % (Auto) 0.6 (0.2-1.2) % Lymph # (Auto) 1.27 (0.9-3.2) K/mm3 [place] # (Auto) 1.3 H (0.1-0.6) K/mm3 Eos # (Auto) 0.1 (0-0.3) K/mm3 Baso # (Auto) 0.1 (0.0-0.1) K/mm3 Abs Immat Gran (auto) 0.13 H (0.00-0.031) K/mm3 Absolute Neuts (auto) 12.1 H (1.3-6.7) K/mm3 Absolute Nucleated RBC 0.000 (0.0-0.012) K/mm3 Nucleated RBC % 0.0 (0.0-0.2) % Sodium 136 L (137-145) mmol/L Potassium 4.0 (3.4-5.0) mmol/L Chloride 101 (98-107) mmol/L Carbon Dioxide 25 (22-30) mmol/L Anion Gap 10 (4-12) mmol/L BUN 19 (9-20) mg/dL Creatinine 1.12 (0.7-1.3) mg/dL Estim Creat Clear Calc 41 ml/min Estimated GFR > 60 (59 - ) Glucose 137 H (65-110) mg/dL Lactic Acid 1.1 (0.7-2.0) mmol/L Calcium 8.5 (8.4-10.2) mg/dL Magnesium 2.1 (1.6-2.3) mg/dL Total Bilirubin 0.7 (0.2-1.3) mg/dL AST 21 (17-59) U/L ALT 21 (6-50) U/L Alkaline Phosphatase 95 (38-126) U/L NT-Pro-B Natriuret Pep 1090 H (19.9-100) pg/mL Total Protein 7.0 (6.3-8.2) g/dL Albumin 3.5 (3.5-5.1) g/dL Influenza A (RT-PCR) Negative (Negative) Influenza B (RT-PCR) Negative (Negative) RSV (RT-PCR) Positive A (Negative) SARS-CoV-2 RNA (RT-PCR) Negative (Negative) Critical Care Time Critical Care Time Critical Care Time: Yes Total Critical Care Time: 31 Discharge Plan Discharge Clinical Impression: Acute hypoxemic respiratory failure, RSV bronchitis Patient Disposition: Still a Patient Condition: Stable
--- NOTE | 2024-10-05 15:15 | PC.NURSE ---
Patient's nurse requested I do the admission for patient. Isolation rack on patients door. Patient's nurse already added worklist admission criteria and Plan of Care.
--- NOTE | 2024-10-05 15:26 | ADMGEN ---
This patient, Christopher Spangler, was admitted to 3 [facility] Surg Room 322-01. Patient oriented to hospital policies and general routines including ID bracelet, bed and alarms, visiting hours, pain management, procedures, bathroom and other care routines, personal items, smoking policy, room service/diet, and visiting hours. Information on how to activate the Rapid Response Team has been discussed. Patient are encouraged to report perceived risks to care and to ask questions if they do not understand what they are told or what they should do. Call light within reach. Will call daughter to verify medications.
[2024-10-05 15:32] LABS: Glucose Point of Care 136 mg/dl (65-105)
--- NOTE | 2024-10-05 16:05 | PC.NURSE ---
Addendum entered by Mayelin Banks RN 10/05/24 16:59: 1658 Spoke with patient's daughter and updated all pertinent information. Original Note: 1605: Call patient's daughter, Deena, to update medications, family history, and influenza status. I was sent to [employer] and left a message with the phone number to the floor.
[2024-10-05 16:51] LABS: Glucose Point of Care 119 mg/dl (65-105)
[2024-10-05] MEDS: guaiFENesin/DEXTROMETHORPHAN 10 ML UDC PO (17:18)
[2024-10-05 21:27] LABS: Glucose Point of Care 117 mg/dl (65-105)
[2024-10-06] VITALS (14 sets, daily range): BP systolic 82–132; BP diastolic 41–64; PULSE 60–82; RESP 14–20; TEMP 36.4–37.3; O2SAT 90–98
[2024-10-06] MEDS: methylPREDNISolone SOD SUCC 125 MG VIAL IV PUSH (00:35)
[2024-10-06] MEDS: MIRTAZAPINE 15 MG TABLET PO ×2 (00:35→22:06)
[2024-10-06] MEDS: guaiFENesin/DEXTROMETHORPHAN 10 ML UDC PO ×6 (00:36→22:07)
[2024-10-06] MEDS: IPRATROPIUM 0.5 MG/ALBUTEROL SULFATE 2.5 MG AMPUL.NEB 3 ML INHALATION ×4 (02:02→20:46)
[2024-10-06 07:12] LABS: Basophils Absolute Auto 0.1 K/mm3 (0.0-0.1); Basophils Percent Auto 0.4 % (0.2-1.2); Hematocrit 44.7 % (42.0-52.0); Hemoglobin 14.5 g/dL (14.0-18.0); Immature Granulocyte Absolute 0.17 K/mm3 (0.00-0.031); Immature Granulocyte Percent A 1.3 % (0-0.5); Lymphocytes Absolute Auto 0.42 K/mm3 (0.9-3.2); Lymphocytes Percent Auto 3.1 % (18.3-44.2); Mean Corpuscular HGB Conc 32.4 g/dl (32-36); Mean Corpuscular Hemoglobin 29.7 pg (26-34); Mean Corpuscular Volume 91.6 fl (80-100); Mean Platelet Volume 10.1 fl (7.4-10.4); Monocytes Absolute Auto 0.1 K/mm3 (0.1-0.6); Monocytes Percent Auto 0.5 % (2.6-8.5); Neutrophils Absolute Auto 12.7 K/mm3 (1.3-6.7); Neutrophils Percent Auto 94.7 % (45.5-73.1); Platelet Count Result 256 k/mm3 (150-375); Red Blood Count 4.88 M/mm3 (4.6-6.20); Red Cell Distribution Width 14.8 % (11.5-14.5); White Blood Count 13.4 K/mm3 (4.5-10.0)
[2024-10-06 07:25] LABS: Anion Gap 7 mmol/L (4-12); Blood Urea Nitrogen 21 mg/dL (9-20); Calcium 8.9 mg/dL (8.4-10.2); Carbon Dioxide 31 mmol/L (22-30); Chloride 98 mmol/L (98-107); Estimated CRCL calculation 37 ml/min; Estimated Glomerular Filt Rate 59; Glucose 162 mg/dL (65-110); Potassium 4.9 mmol/L (3.4-5.0); Sodium 136 mmol/L (137-145)
[2024-10-06 08:03] LABS: Glucose Point of Care 166 mg/dl (65-105)
[2024-10-06] MEDS: ATORVASTATIN 40 MG TABLET PO (08:39)
[2024-10-06] MEDS: predniSONE 20 MG TABLET 40 MG PO (08:39)
[2024-10-06] MEDS: allopurinoL 300 MG TABLET PO (08:40)
[2024-10-06] MEDS: ramipriL 5 MG CAPSULE 10 MG PO (08:40)
[2024-10-06] MEDS: ASPIRIN 81 MG ENTERIC TABLET PO (08:40)
[2024-10-06] MEDS: DOXYCYCLINE HYCLATE 100 MG TABLET PO ×2 (08:41→22:06)
[2024-10-06] MEDS: CELECOXIB 200 MG CAPSULE PO (08:41)
[2024-10-06 09:06] LABS: Hemoglobin A1C 6.2 % (<5.7)
[2024-10-06] MEDS: FLUTICASONE/UMECLIDIN/VILANTER 100-62.5-25 MCG ELLIPTA 1 PUFF INHALATION (09:21)
[2024-10-06 12:07] LABS: Glucose Point of Care 208 mg/dl (65-105)
--- NOTE | 2024-10-06 16:21 | P.PNIM_ITS ---
Progress Note: A&P Assessment and Plan (1) Acute on chronic hypoxic respiratory failure: Code(s): J96.21 - Acute and chronic respiratory failure with hypoxia Status: Acute Assessment and Plan: -likely related to RSV virus +/vs PNA +/vs COPD exacerbation. -CXR: Questional subtle left midlung pneumonia. -currently good O2 sats > 91 % on room air. -further management per # 2 and # 3. -monitor closely for decompensation. (2) Pneumonia: Code(s): J18.9 - Pneumonia, unspecified organism Status: Acute Assessment and Plan: -CXR: Questionable subtle left midlung pneumonia. -blood cultures collected. -started on IV Rocephin and p.o. doxycycline. -follow cultures. -currently good O2 sats > 90% on RA. (3) RSV (respiratory syncytial virus infection): Code(s): B33.8 - Other specified viral diseases Status: Acute Assessment and Plan: -acute respiratory virus PCR is +ve for RSV. -continue supportive care. -patient reporting much improvement in symptoms. (4) COPD (chronic obstructive pulmonary disease): Code(s): J44.9 - Chronic obstructive pulmonary disease, unspecified Status: Acute Assessment and Plan: -possibly in mild exacerbation. -started on p.o. steroids [facility] -patient on antibiotics for pneumonia. -currently good O2 sats on RA. -monitor closely for decompensation. (5) Coronary artery disease: Code(s): I25.10 - Atherosclerotic heart disease of [place] coronary artery without angina pectoris Status: Acute Assessment and Plan: Stable. 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 HS SSI Hemoglobin A1c 6.2 Hold home anti-hyperglycemic medications. Adjust insulin as needed. (7) High blood pressure: Qualifiers: Hypertension type: essential hypertension Qualified Code(s): I10 - Essential (primary) hypertension Code(s): I10 - Essential (primary) hypertension Status: Acute Assessment and Plan: BP trending low. Hold blood pressure medications. Monitor closely and consider IVF if remains low. (8) Gout: Qualifiers: Gout site: multiple sites Gout etiology: idiopathic Chronicity: chronic Presence of tophus: without tophus Qualified Code(s): M1A.09X0 - Idiopathic chronic gout, multiple sites, without tophus (tophi) Code(s): M10.9 - Gout, unspecified Status: Acute Assessment and Plan: Stable. Continue allopurinol. Time Spent With Patient Time with patient: 15 - 25 minutes Subjective Date/time seen: 10/06/24 11:21 Patient states he feels much better compared to when he came in and his breathing is much better compared to when he came. Interval history: Patient calm on bedrest and looks to be in no acute distress. Patient admitted with worsening shortness of breath and found to be RSV positive. Reports much improvement in his symptoms now and wants to be discharged soon so he can go back home and take care of his who has dementia. Review of Systems Review of Systems: All systems reviewed & are unremarkable except as noted in HPI and below Exam Narrative: General: well appearing, appears stated age. HEENT: normocephalic, atraumatic. Mucous membranes moist. EOMI, PERRLA, bilateral sclera anicteric, no conjunctival injection. Neck: supple without JVD, lymphadenopathy, or bruit. Respiratory: Diminished with faint expiratory wheezes. Cardiovascular: Regular rate and rhythm, normal S1-S2. Abdomen: Soft, round, nondistended and nontender. Bowel sounds present to all four quadrants. Extremities: No cyanosis, clubbing, or edema present. Active ROM to all four extremities. Neuro: Alert and orientated x 4. Cranial nerves 2-12 intact without focal deficit. Skin: Warm, dry, and intact, without rash, erythema, or lesion. Psych: pleasant, cooperative, normal speech, no focal neuro deficit. Objective Data Vital Signs Vital Signs: Vital Signs - 24 hr 10/05/24 18:00 10/05/24 20:00 10/05/24 22:00 Temperature 98.3 F 98.3 F Pulse Rate 67 67 Respiratory Rate 19 19 Blood Pressure 116/64 116/64 Pulse Oximetry 95 97 97 Oxygen Delivery Nasal Cannula Oxygen Flow Rate 2 Fraction of Inspired Oxygen 10/06/24 02:02 10/06/24 02:02 10/06/24 02:13 Temperature Pulse Rate 68 62 Respiratory Rate 20 20 Blood Pressure Pulse Oximetry 96 Oxygen Delivery Nasal Cannula Oxygen Flow Rate 3 Fraction of Inspired Oxygen 32 10/06/24 04:00 10/06/24 05:57 10/06/24 08:50 Temperature 97.6 F 97.6 F Pulse Rate 60 60 Respiratory Rate 16 16 Blood Pressure 105/47 L 105/47 L Pulse Oximetry 98 98 95 Oxygen Delivery Room Air Oxygen Flow Rate Fraction of Inspired Oxygen 10/06/24 08:50 10/06/24 09:21 10/06/24 09:21 Temperature 98.0 F Pulse Rate 71 65 Respiratory Rate 14 20 Blood Pressure 132/64 Pulse Oximetry 95 94 Oxygen Delivery Room Air Oxygen Flow Rate Fraction of Inspired Oxygen 10/06/24 09:29 10/06/24 12:00 10/06/24 14:43 Temperature 99.1 F Pulse Rate 60 79 80 Respiratory Rate 20 18 20 Blood Pressure 82/41 L Pulse Oximetry 91 Oxygen Delivery Oxygen Flow Rate Fraction of Inspired Oxygen 10/06/24 14:53 Temperature Pulse Rate 74 Respiratory Rate 20 Blood Pressure Pulse Oximetry Oxygen Delivery Oxygen Flow Rate Fraction of Inspired Oxygen Intake/Output Intake/Output: Intake & Output 10/03/24 10/04/24 10/05/24 10/06/24 23:59 23:59 23:59 23:59 Intake Total 50 340 Output Total 110 1000 Balance -60 -660 Meds/Results Medications: Active Medications Generic Name Dose Route Start Last Admin Trade Name Freq PRN Reason Stop Dose Admin Acetaminophen 650 mg 10/05/24 14:12 Acetaminophen 325 Mg Tablet PO Q4H PRN Mild Pain (1-3) or Fever Albuterol/Ipratropium 3 ml 10/06/24 02:00 10/06/24 14:43 Ipratropium 0.5 Mg/Albuterol Sulfate 2.5 Mg Ampul.Neb 3 Ml INHALATION 3 ml Q6HRT GRICELDA Administration Allopurinol 300 mg 10/06/24 09:00 10/06/24 08:40 Allopurinol 300 Mg Tablet PO 300 mg DAILY GRICELDA Administration Aspirin 81 mg 10/06/24 09:00 10/06/24 08:40 Aspirin 81 Mg Enteric Tablet PO 81 mg DAILY GRICELDA Administration Atorvastatin Calcium 40 mg 10/06/24 09:00 10/06/24 08:39 Atorvastatin 40 Mg Tablet PO 40 mg DAILY GRICELDA Administration Celecoxib 200 mg 10/06/24 09:00 10/06/24 08:41 Celecoxib 200 Mg Capsule PO 200 mg DAILY GRICELDA Administration Dextrose 12.5 gm 10/05/24 14:12 Dextrose 50% 25 Gm/50 Ml Syringe IV PUSH PRN PRN Hypoglycemia Protocol Doxycycline Hyclate 100 mg 10/06/24 09:00 10/06/24 08:41 Doxycycline Hyclate 100 Mg Tablet PO 100 mg Q12HR GRICELDA Administration Fluticasone/Umeclidinium/Vilanterol 1 puff 10/06/24 09:00 10/06/24 09:21 Fluticasone/Umeclidin/Vilanter 100-62.5-25 Mcg Ellipta INHALATION 1 puff DAILY GRICELDA Administration Glucagon 1 mg 10/05/24 14:12 Glucagon For Inj 1 Mg Vial IM PRN PRN Hypoglycemia Protocol Glucose 15 gm 10/05/24 14:12 Glucose Oral Gel 15 Gm Of Glucse In 37.5 Gm Tube PO PRN PRN Hypoglycemia Protocol Guaifenesin/Dextromethorphan 10 ml 10/05/24 14:15 10/06/24 12:26 Guaifenesin/Dextromethorphan 10 Ml Udc PO 10 ml Q4HR GRICELDA Administration Dextrose 1,000 mls @ 100 mls/hr 10/05/24 14:12 Dextrose 5% 1,000 Ml IVPB PRN PRN Hypoglycemia Protocol Ceftriaxone Sodium 1 gm in 50 mls @ 100 mls/hr 10/06/24 05:00 10/06/24 05:37 Rocephin 1 Gm/Ns 50 Ml IVPB 100 mls/hr Q24H GRICELDA Administration Insulin Aspart 2 - 5 units 10/05/24 17:00 10/06/24 12:07 Insulin Aspart (*Bkc) 100 Units/Ml SUB-Q Not Given TIDWM GRICELDA Protocol Insulin Aspart 1 - 2 units 10/05/24 21:00 10/05/24 21:00 Insulin Aspart (*Bkc) 100 Units/Ml SUB-Q Not Given HS GRICELDA Protocol Mirtazapine 15 mg 10/06/24 00:00 10/06/24 00:35 Mirtazapine 15 Mg Tablet PO 15 mg QHS GRICELDA Administration Prednisone 40 mg 10/06/24 08:00 10/06/24 08:39 Prednisone 20 Mg Tablet PO 40 mg DAILY@0800 GRICELDA Administration Ramipril 10 mg 10/06/24 09:00 10/06/24 08:40 Ramipril 5 Mg Capsule PO 10 mg DAILY GRICELDA Administration Radiology Results: ITS Impressions Chest X-Ray 10/05/24 13:10 Impression: Questional subtle left midlung pneumonia. COPD. Labs Labs: Laboratory Results - last 24 hr 10/05/24 10/05/24 10/06/24 16:36 20:40 06:26 WBC 13.4 H RBC 4.88 Hgb 14.5 Hct 44.7 MCV 91.6 MCH 29.7 MCHC 32.4 RDW 14.8 H Plt Count 256 MPV 10.1 Immature Gran % (Auto) 1.3 H Neut % (Auto) 94.7 H Lymph % (Auto) 3.1 L [place] % (Auto) 0.5 L Eos % (Auto) 0.0 Baso % (Auto) 0.4 Lymph # (Auto) 0.42 L [place] # (Auto) 0.1 Eos # (Auto) 0.0 Baso # (Auto) 0.1 Abs Immat Gran (auto) 0.17 H Absolute Neuts (auto) 12.7 H Absolute Nucleated RBC 0.000 Nucleated RBC % 0.0 Sodium 136 L Potassium 4.9 Chloride 98 Carbon Dioxide 31 H Anion Gap 7 BUN 21 H Creatinine 1.20 Estim Creat Clear Calc 37 Estimated GFR 59 Glucose 162 H POC Capillary Glucose 119 H 117 H Hemoglobin A1c 6.2 H Calcium 8.9 10/06/24 10/06/24 08:00 11:56 WBC RBC Hgb Hct MCV MCH MCHC RDW Plt Count MPV Immature Gran % (Auto) Neut % (Auto) Lymph % (Auto) [place] % (Auto) Eos % (Auto) Baso % (Auto) Lymph # (Auto) [place] # (Auto) Eos # (Auto) Baso # (Auto) Abs Immat Gran (auto) Absolute Neuts (auto) Absolute Nucleated RBC Nucleated RBC % Sodium Potassium Chloride Carbon Dioxide Anion Gap BUN Creatinine Estim Creat Clear Calc Estimated GFR Glucose POC Capillary Glucose 166 H 208 H Hemoglobin A1c Calcium Quality VTE Prophylaxis VTE prophylaxis: mechanical ordered and pharmacologic ordered Hospitalist MIPS Advance Care Plan I have confirmed that the patient's Advanced Care Plan is present, code status is documented, or surrogate decision maker is listed in patient medical record.: Yes Medication Reconciliation I have utilized all available resources to obtain, update and review the patients current medications (includes all prescriptions, OTC, herbals, cannabis, and nutritional supplements).: Yes
[2024-10-06 16:40] LABS: Glucose Point of Care 478 mg/dl (65-105)
[2024-10-06] MEDS: INSULIN ASPART (*BKC) 100 UNITS/ML 10 UNITS SUB-Q (18:14)
[2024-10-06 18:19] LABS: Glucose Point of Care 455 mg/dl (65-105)
[2024-10-06] MEDS: INSULIN ASPART (*BKC) 100 UNITS/ML SUB-Q (22:07)
[2024-10-06 22:09] LABS: Glucose Point of Care 238 mg/dl (65-105)
[2024-10-07] VITALS (9 sets, daily range): BP systolic 96–116; BP diastolic 53–73; PULSE 57–94; RESP 20; TEMP 36.2–36.6; O2SAT 91–95
[2024-10-07] MEDS: guaiFENesin/DEXTROMETHORPHAN 10 ML UDC PO ×4 (02:08→12:43)
[2024-10-07] MEDS: IPRATROPIUM 0.5 MG/ALBUTEROL SULFATE 2.5 MG AMPUL.NEB 3 ML INHALATION ×3 (02:39→15:06)
[2024-10-07 06:31] LABS: Basophils Absolute Auto 0.1 K/mm3 (0.0-0.1); Basophils Percent Auto 0.2 % (0.2-1.2); Hematocrit 43.1 % (42.0-52.0); Hemoglobin 14.1 g/dL (14.0-18.0); Immature Granulocyte Absolute 0.24 K/mm3 (0.00-0.031); Immature Granulocyte Percent A 0.9 % (0-0.5); Lymphocytes Percent Auto 3.1 % (18.3-44.2); Mean Corpuscular HGB Conc 32.7 g/dl (32-36); Mean Corpuscular Hemoglobin 29.6 pg (26-34); Mean Corpuscular Volume 90.5 fl (80-100); Mean Platelet Volume 9.9 fl (7.4-10.4); Monocytes Absolute Auto 1.2 K/mm3 (0.1-0.6); Monocytes Percent Auto 4.7 % (2.6-8.5); Neutrophils Absolute Auto 23.4 K/mm3 (1.3-6.7); Neutrophils Percent Auto 91.1 % (45.5-73.1); Platelet Count Result 292 k/mm3 (150-375); Red Blood Count 4.76 M/mm3 (4.6-6.20); Red Cell Distribution Width 14.7 % (11.5-14.5); White Blood Count 25.7 K/mm3 (4.5-10.0)
[2024-10-07 06:59] LABS: Anion Gap 7 mmol/L (4-12); Blood Urea Nitrogen 44 mg/dL (9-20); Calcium 8.8 mg/dL (8.4-10.2); Carbon Dioxide 29 mmol/L (22-30); Chloride 100 mmol/L (98-107); Estimated CRCL calculation 31 ml/min; Estimated Glomerular Filt Rate 48; Glucose 189 mg/dL (65-110); Potassium 4.2 mmol/L (3.4-5.0); Sodium 136 mmol/L (137-145)
[2024-10-07 07:35] LABS: Anisocytosis 1+; Burr Cells 1+; Platelet Estimate Adequate (Adequate); Schistocytes Rare
[2024-10-07 08:24] LABS: Glucose Point of Care 205 mg/dl (65-105)
[2024-10-07] MEDS: CELECOXIB 200 MG CAPSULE PO (08:47)
[2024-10-07] MEDS: allopurinoL 300 MG TABLET PO (08:47)
[2024-10-07] MEDS: predniSONE 20 MG TABLET 40 MG PO (08:47)
[2024-10-07] MEDS: SODIUM CHLORIDE 0.9% IV 1,000 ML 100 ML IV CONT (08:48)
[2024-10-07] MEDS: ATORVASTATIN 40 MG TABLET PO (08:48)
[2024-10-07] MEDS: ASPIRIN 81 MG ENTERIC TABLET PO (08:48)
[2024-10-07] MEDS: DOXYCYCLINE HYCLATE 100 MG TABLET PO (08:48)
[2024-10-07] MEDS: INSULIN ASPART (*BKC) 100 UNITS/ML SUB-Q (08:50)
[2024-10-07] MEDS: FLUTICASONE/UMECLIDIN/VILANTER 100-62.5-25 MCG ELLIPTA 1 PUFF INHALATION (09:47)
--- NOTE | 2024-10-07 10:38 | PCSTNOTE ---
Please refer to the Bedside Swallow Evaluation in the EMR. Please note, silent aspiration cannot be ruled out at bedside.
[2024-10-07 12:00] LABS: Glucose Point of Care 160 mg/dl (65-105)
[2024-10-07 14:33] LABS: Anion Gap 5 mmol/L (4-12); Blood Urea Nitrogen 35 mg/dL (9-20); Calcium 8.7 mg/dL (8.4-10.2); Carbon Dioxide 30 mmol/L (22-30); Chloride 102 mmol/L (98-107); Estimated CRCL calculation 35 ml/min; Estimated Glomerular Filt Rate 55; Glucose 176 mg/dL (65-110); Potassium 4.6 mmol/L (3.4-5.0); Sodium 137 mmol/L (137-145)
--- NOTE | 2024-10-07 15:16 | P.DS_ITS ---
DS: Admitting Diagnosis Discharge Date 10/07/2024 Admitting Diagnosis Acute on chronic hypoxic respiratory failure DS: Discharge Diagnosis Discharge Diagnosis (1) Acute on chronic hypoxic respiratory failure: Code(s): J96.21 - Acute and chronic respiratory failure with hypoxia Status: Acute Assessment and Plan: Acute (2) Pneumonia: Code(s): J18.9 - Pneumonia, unspecified organism Status: Acute Assessment and Plan: Acute (3) RSV (respiratory syncytial virus infection): Code(s): B33.8 - Other specified viral diseases Status: Acute Assessment and Plan: Acute (4) COPD (chronic obstructive pulmonary disease): Code(s): J44.9 - Chronic obstructive pulmonary disease, unspecified Status: Acute Assessment and Plan: Acute on Chronic (5) Coronary artery disease: Code(s): I25.10 - Atherosclerotic heart disease of [place] coronary artery without angina pectoris Status: Acute Assessment and Plan: Chronic (6) Diabetes mellitus: Qualifiers: Diabetes mellitus complication status: without complication 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: without termite control servicer use Diabetes mellitus type: type 2 Qualified Code(s): E11.9 - Type 2 diabetes mellitus without complications Code(s): E11.9 - Type 2 diabetes mellitus without complications Status: Acute Assessment and Plan: Chronic (7) High blood pressure: Qualifiers: Hypertension type: essential hypertension Qualified Code(s): I10 - Essential (primary) hypertension Code(s): I10 - Essential (primary) hypertension Status: Acute Assessment and Plan: Chronic (8) Gout: Qualifiers: Chronicity: chronic Gout etiology: idiopathic Gout site: multiple sites Presence of tophus: without tophus Qualified Code(s): M1A.09X0 - Idiopathic chronic gout, multiple sites, without tophus (tophi) Code(s): M10.9 - Gout, unspecified Status: Acute Assessment and Plan: Chronic Plan Discharge home on self-care DS: Summary Hospital Course Reason for hospitalization: Acute hypoxic respiratory failure Hospital Course: Patient presented to emergency room with reports of worsening shortness of breath within the last couple of days. Chest x-ray done in the emergency room showed subtle left midlung pneumonia. He had fairly unremarkable labs except for some slight dehydration, and his acute viral infection PCR also came back positive for RSV. Patient was admitted for stabilization of his symptoms, with blood cultures collected and patient started on empiric ceftriaxone and doxycycline for possible bacterial pneumonia infection. He has maintained O2 sats > 90% on RA, and was given supportive treatment with prednisone, scheduled bronchodilator and antitussives. Patient has also been hydrated with IV fluids and his dehydration has improved. He was noted to be possibly in slight acute exacerbation of his COPD, which was treated with oral steroids and bronchodilators. His blood pressure trended normal lows during his hospitalization so his blood pressure medication, ramipril was held inpatient. His blood glucose levels were also slightly elevated likely due to steroids and also patient's daughter bringing patient food from restaurants, including shakes, while he was hospitalized. His A1c was 6.2 and patient is on empagliflozin at home. Patient reports that his has dementia and is the sole caregiver therefore wants to be discharged today so he can go and take care of his . He states he is feeling much better including with ambulation in the room. As mentioned, patient has maintained good O2 sat above 90% on RA during his whole hospitalization. All his other chronic conditions remained stable in patient, and patient is medically stable for discharge with no acute distress noted or reported prior to discharge. Status at Discharge Functional status at discharge: independent ambulation Overall status at discharge: patient is progressing back to baseline Time Spent with Patient Time attestation: Total time spent providing and/or coordinating discharge services: Time spent: Greater than 30 minutes Exam Narrative: General: well appearing, appears stated age. HEENT: normocephalic, atraumatic. Mucous membranes moist. EOMI, PERRLA, bilateral sclera anicteric, no conjunctival injection. Neck: supple without JVD, lymphadenopathy, or bruit. Respiratory: Diminished. Cardiovascular: Regular rate and rhythm, normal S1-S2. Abdomen: Soft, round, nondistended and nontender. Bowel sounds present to all four quadrants. Extremities: No cyanosis, clubbing, or edema present. Active ROM to all four extremities. Neuro: Alert and orientated x 4. Cranial nerves 2-12 intact without focal deficit. Skin: Warm, dry, and intact, without rash, erythema, or lesion. Psych: pleasant, cooperative, normal speech, no focal neuro deficit. DS: Data Data Completed and Pending Labs on day of discharge: Labs from last 24 hours 10/07/24 10/07/24 10/07/24 14:00 11:45 08:19 WBC RBC Hgb Hct MCV MCH MCHC RDW Plt Count MPV Immature Gran % (Auto) Neut % (Auto) Lymph % (Auto) [place] % (Auto) Eos % (Auto) Baso % (Auto) Lymph # (Auto) [place] # (Auto) Eos # (Auto) Baso # (Auto) Abs Immat Gran (auto) Absolute Neuts (auto) Absolute Nucleated RBC Nucleated RBC % Platelet Estimate Anisocytosis [place] Cells Schistocytes Sodium 137 Potassium 4.6 Chloride 102 Carbon Dioxide 30 Anion Gap 5 BUN 35 H Creatinine 1.27 Estim Creat Clear Calc 35 Estimated GFR 55 L Glucose 176 H POC Capillary Glucose 160 H 205 H Calcium 8.7 10/07/24 10/06/24 10/06/24 06:11 21:03 18:13 WBC 25.7 H RBC 4.76 Hgb 14.1 Hct 43.1 MCV 90.5 MCH 29.6 MCHC 32.7 RDW 14.7 H Plt Count 292 MPV 9.9 Immature Gran % (Auto) 0.9 H Neut % (Auto) 91.1 H Lymph % (Auto) 3.1 L [place] % (Auto) 4.7 Eos % (Auto) 0.0 Baso % (Auto) 0.2 Lymph # (Auto) 0.80 L [place] # (Auto) 1.2 H Eos # (Auto) 0.0 Baso # (Auto) 0.1 Abs Immat Gran (auto) 0.24 H Absolute Neuts (auto) 23.4 H Absolute Nucleated RBC 0.000 Nucleated RBC % 0.0 Platelet Estimate Adequate Anisocytosis 1+ [place] Cells 1+ Schistocytes Rare Sodium 136 L Potassium 4.2 Chloride 100 Carbon Dioxide 29 Anion Gap 7 BUN 44 H D Creatinine 1.43 H Estim Creat Clear Calc 31 Estimated GFR 48 L Glucose 189 H POC Capillary Glucose 238 H 455 H Calcium 8.8 10/06/24 16:33 WBC RBC Hgb Hct MCV MCH MCHC RDW Plt Count MPV Immature Gran % (Auto) Neut % (Auto) Lymph % (Auto) [place] % (Auto) Eos % (Auto) Baso % (Auto) Lymph # (Auto) [place] # (Auto) Eos # (Auto) Baso # (Auto) Abs Immat Gran (auto) Absolute Neuts (auto) Absolute Nucleated RBC Nucleated RBC % Platelet Estimate Anisocytosis [place] Cells Schistocytes Sodium Potassium Chloride Carbon Dioxide Anion Gap BUN Creatinine Estim Creat Clear Calc Estimated GFR Glucose POC Capillary Glucose 478 H Calcium Preliminary micro results at discharge 10/05/24 12:23 Blood Culture - Preliminary Blood 10/05/24 12:23 Blood Culture - Preliminary Blood Discharge Plan Discharge Attending physician on discharge: Ghulam Sotelo Discharging Clinician: Carlos Campuzano Anticipated Discharge Date/Time: 10/07/24 15:37 Patient Disposition: Home, Self-Care Activity: as tolerated Diet: heart healthy Patient Instructions: Antibiotic Form Patient Language: Icelandic Stand Alone Forms: General Discharge Information Follow-up/Referrals: Ronald Payne MD [Primary Care Provider] - 1 Week Discharge Medications: New prednisone 20 mg tablet 40 mg PO DAILY@0800 Qty: 9 0RF Rx Instructions: 40 mg X 3 days 20 mg X 3 days then discontinue dextromethorphan-guaifenesin 10-100 mg/5 mL Syrup 10 ml PO Q4HR Qty: 75 0RF doxycycline hyclate 100 mg Tablet 100 mg PO Q12HR Qty: 8 0RF benzonatate 200 mg capsule 200 mg PO TID PRN (Reason: cough) Qty: 15 0RF Continued atorvastatin 40 mg tablet 40 mg PO DAILY Jardiance 10 mg tablet 10 mg PO DAILY sildenafil [Viagra] 100 mg tablet 100 mg PO DAILY PRN (Reason: ED) celecoxib [Celebrex] 200 mg capsule 200 mg PO DAILY Qty: 90 3RF aspirin [Adult Aspirin Regimen] 81 mg tablet,delayed release (DR/EC) 81 mg PO DAILY allopurinol 300 mg tablet See Rx Instructions .ROUTE .COMPLEX Qty: 90 3RF Dose Instruction: TAKE 1 TABLET BY MOUTH EVERY DAY Rx Instructions: TAKE 1 TABLET BY MOUTH EVERY DAY triamcinolone acetonide 0.1 % ointment 1 applic topical BID Qty: 80 0RF mirtazapine 15 mg tablet 15 mg PO QHS Qty: 90 1RF Trelegy Ellipta 100-62.5-25 mcg blister with device 1 inh inhalation DAILY Qty: 180 1RF Held ramipril 10 mg capsule 10 mg PO DAILY Hold Instructions: Resume on 09/15/24. Date of admission: 10/05/24 14:00 Primary Care Provider: Ronald Payne Admitting Provider: Ghulam Sotelo Attending physician on admission: Ghulam Sotelo Condition: Stable Quality If No VTE Prophylaxis Answer both mechanical and pharmacologic: Reason no mechanical VTE proph: low risk/not indicated Reason no pharmacologic proph: low risk/not indicated Hospitalist MIPS Heart Failure (Exclusion) Patient has history of Heart Transplant or Left Ventricular Assistive Device?: No IF YES, STOP HERE Heart Failure (Qualifier) Patient has current or prior documentation of LVEF less than or equal to 40%, or mod/servere depressed LVSF?: No IF NO, STOP HERE
== END 2024-10-07 16:50 | disposition home or self-care (01) | DRG 193 ==
LOC: ANHED 13:33 → ANH3MEDSUR 14:11
PROVIDERS: Nurse Practitioner Gerontology; Admitting Provider Internal Medicine; Emergency Provider Emergency Medicine; PCP Family Medicine; Visit Provider Nurse Practitioner Adult Health
DX: J18.9 Pneumonia, unspecified organism (principal); J96.21 Acute and chronic respiratory failure with hypoxia; J44.0 Chronic obstructive pulmonary disease with (acute) lower respiratory infection; J44.1 Chronic obstructive pulmonary disease with (acute) exacerbation; B33.8 Other specified viral diseases; I25.10 Atherosclerotic heart disease of native coronary artery without angina pectoris; E11.9 Type 2 diabetes mellitus without complications; E86.0 Dehydration; F17.210 Nicotine dependence, cigarettes, uncomplicated; I10 Essential (primary) hypertension; M10.9 Gout, unspecified; Z20.822 Contact with and (suspected) exposure to COVID-19
CPT/HCPCS: 36415; 71045; 80048; 80053; 82948; 83036; 83605; 83735; 83880; 85025; 87040; 87637; 92526; 92610; 93005; 94640; 96365; 96375; 99285; A9270; J0696; J1815; J2919; J7030; J7512

== ENCOUNTER 2024-10-27 09:53 | Outpatient (CLI) | payer MEDICARE, OTHER, SELFPAY ==
--- NOTE | ~2024-10-27 | XR_ITS ---
EXAMINATION: XR chest 2V DATE: 10/27/2024 10:14 INDICATION: Other specified viral diseases. TECHNIQUE: Frontal and lateral views of the chest were obtained. COMPARISON: Chest single view 10/05/2024, chest 2 views 01/11/2021 FINDINGS: The lungs are hyperexpanded with lucencies and interstitial opacities, consistent with pneu monia. Calcified right lung nodules are consistent with old granulomatous disease. No pleural effusio n or pneumothorax. The heart size is normal. IMPRESSION: 1. Emphysema. Reviewed, dictated and finalized at location A. [facility]STER IMPRESSION: 1. Emphysema.
--- OUTSIDE RECORDS SUMMARY | 2024-10-27 12:47 | XMS_ITS | Encounter Summary ---
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
--- OUTSIDE RECORDS SUMMARY | 2024-10-27 12:47 | XMS_ITS | Referral Summary ---
Author Organization [facility] [address] [facility] [address] Address [address] [place] [address] Care Team Providers Care Intramural Director Name Role Phone Ronald Payne MD Primary Care Provider [phone] Encounters Date Type Department Care Team Description 09/27/2024 9:30 AM PAPER CLEANER Telemedicine [facility] Medical [facility] Virtual Care [address] [place] [address] Litzy Jett NP COPD with acute exacerbation (HCC) (Primary Dx) 09/27/2024 Patient Self-Triage [facility] HealthCare/ Physicians [address] [place] [address] Mychart, Generic Provider 08/11/2024 10:30 AM PAPER CLEANER Office Visit [facility] Cardiology [address] [place] [address] Destinee Saldivar NP Coronary arteriosclerosis in [place] artery; Hyperlipidemia associated with type 2 diabetes mellitus (HCC); Lipid screening; 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) 08/01/2024 Telephone [facility]patient Health [address] [place] [address] Samuel Malone MD from Last [...] 05/02/2018 Assessment & Plan (11/13/2023 1:19 PM PAPER CLEANER): Chronic, with LDL at goal Continue atorvastatin 20 mg daily Assessment & Plan (11/09/2022 12:09 PM PAPER CLEANER): Chronic, well controlled Low fat Low cholesterol diet Continue statin therapy with Atorvastatin Assessment & Plan (11/10/2021 10:29 AM PAPER CLEANER): Chronic, well controlled Continue current meds Assessment & Plan (04/28/2021 1:13 PM CDT): Lipids were checked today They seem to be at goal Continue with atorvastatin Assessment & Plan (10/21/2020 2:57 PM PAPER CLEANER): At goal on current medications. Continue statin [...] goal Assessment & Plan (11/12/2018 10:59 AM PAPER CLEANER): Goal of treatment , LDL cholesterol less [...] Old myocardial infarction 02/23/2015 Overview (12/14/2016): Old CT (myocardial infarction) Keratosis, senilis 02/10/2015 Coronary arteriosclerosis in [place] artery 01/24 Overview (12/15/2016): CRNRY ATHRSCL NATVE VSSL Assessment & Plan (05/25/2017 5:11 PM CDT): 2008: IMI and RCA stent 03/2016: Lexiscan negative, EF 56% Stable without angina History of substance abuse ([facility]) 01/24/2014 Overview (12/16/2016): HISTORY OF TOBACCO USE Type 2 diabetes mellitus 08/26/2013 Overview (12/15/2016): DMII WO CMP UNCNTRLD Assessment & Plan (11/13/2023 1:18 PM PAPER CLEANER): Chronic, well-controlled Continue Jardiance 10 mg daily Importance of diet and exercise was emphasized Assessment & Plan (11/09/2022 12:08 PM PAPER CLEANER): Hba1c was Lab Results Component Value Date HGBA1C 6.2 11/09/2022 today, indicating adequate DM control Goal Hba1c and blood glucose explained Diet and exercise were advised Adjustment to medications: continue Jardiance Assessment & Plan (11/10/2021 10:29 AM PAPER CLEANER): Hba1c was Lab Results Component Value Date [...] Jardiance Assessment & Plan (10/21/2020 2:58 PM PAPER CLEANER): A1c 5.7 without hypoglycemia. No change to [...] Jardiance Assessment & Plan (11/12/2018 10:59 AM PAPER CLEANER): Hba1c was Lab Results Component Value Date [...] recommended Assessment & Plan (10/30/2017 2:45 PM PAPER CLEANER): Hba1c was 6.0 today, indicating proper DM [...] due to type 2 di abetes mellitus ([facility]) 07/12/2021 08/19/2023 Need for immunization against influenza 06/06/2016 06/24/2019 Disorder of lung 06/05/2016 06/24/2019 Former smoker 05/31/2016 05/25/2017 Overview (12/16/2016): Former smoker Hypertension associated with diabetes 03/27/2016 08/06/2023 Overview (12/14/2016): Essential hypertension Assessment & Plan (11/09/2022 12:08 PM PAPER CLEANER): Chronic, well controlled Importance of low salt diet and exercise were discussed Continue current meds including Ramipril Update MA Assessment & Plan (11/10/2021 10:33 AM PAPER CLEANER): Chronic, well controlled Continue current meds Assessment & Plan (04/28/2021 1:12 PM CDT): Adequately controlled Continue with ramipril Check microalbumin Assessment & Plan (10/21/2020 2:57 PM PAPER CLEANER): Controlled on current medications. Continue plan. 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 Assessment & Plan (06/19/2019 10:16 AM CDT): Goal blood pressure is less than 140/85 Low salt diet recommended Daily aerobic exercise Continue current meds, including ESTEFANIA-I or ARB Will check microalbumin Assessment & Plan (11/12/2018 10:59 AM PAPER CLEANER): Goal blood pressure is less than 140/85 Low salt diet recommended Daily aerobic exercise Continue current meds, including ESTEFANIA-I or ARB Assessment & Plan (10/30/2017 2:44 PM PAPER CLEANER): Goal blood pressure is less than 140/85 [...] EF 40-45% at the time of his CT, now up to 56%, doing well Tobacco [...] NEC/NOS Assessment & Plan (10/30/2017 2:44 PM PAPER CLEANER): Goal of treatment , LDL cholesterol less [...] ) Continue statin therapy with Lipitor Immunizations Immunization Administration Dates Next Due Influenza, Quadrivalent, Spl [...] on file Legal Sex Male 12:14 AM PAPER CLEANER Gender Identity Not on file Sexual Orientation Not on file Last Filed Vital Signs Vital Sign Reading Time Taken Comments Blood Pressure 96/52 08/11/2024 10:32 AM PAPER CLEANER Pulse 74 08/11/2024 10:32 AM PAPER CLEANER Temperature 35.8 C (96.4 F) 05/27/2024 9:44 AM CDT Respiratory Rate 16 05/27/2024 1:50 PM CDT Oxygen Saturation 95% 08/11/2024 10:32 AM PAPER CLEANER Inhaled Oxygen Concentration - - Weight 64.4 kg (142 lb) 08/11/2024 10:32 AM PAPER CLEANER Height 167.6 cm (5' 6 ) 08/11/2024 10:32 AM PAPER CLEANER Body Mass Index 22.92 08/11/2024 10:32 AM PAPER CLEANER Plan of Treatment Not on file Medical Devices Implanted Type Area Director Group Sales Device Identifier Shelf Expiration Date Model / Serial / Lot Stent Implanted:Qty: 1 N/A: Heart Procedures Procedure Name Priority Date/Time Associated Diagnosis Comments POCT LIPID PANEL Routine 08/11/2024 10:3 7 AM PAPER CLEANER Lipid screening EGFR Routine 11/13/2023 1:25 PM PAPER CLEANER Type 2 diabetes mellitus with hyperglycemia, without long-term current use of insulin ([facility]) ([facility]) POCT HEMOGLOBIN A1C Routine 11/13/2023 1 2:40 PM PAPER CLEANER Type 2 diabetes mellitus with hyperglycemia, without long-term current use of insulin (CMS/HCC) (HCC) ALBUMIN CREATININE RATIO, URINE Routine 05/30/2021 10:29 AM CDT Hypertension associated with diabetes (HCC) DIABETIC EYE EXAM Routine 11/08/2018 from Last 3 Months or Most Recently Relevant to Health Maintenance Results * POCT lipid panel (08/11/2024 10:37 AM PAPER CLEANER) Cholesterol, POC 139 mg/dL HDL, POC 48 mg/dL Triglycerides, POC 80 mg/dL LDL Cholesterol POC 75 mg/dL Chol/HDL Ratio, POC 1.6 Non-HDL Cholesterol, POC 91 mg/dL Cholesterol Total, POC 139 mg/dL Capillary blood 08/11/2024 1 0:37 AM PAPER CLEANER Destinee Saldivar NP POINT OF CARE TEST ORDERA BLES Final Result * eGFR (11/13/2023 1:25 PM PAPER CLEANER) eGFR 50 mL/min/1. 73 m2 [facility] Comment: Interpretive Data Reference Interval Normal >/= 90 mL/min/1.73m2 Mildly decreased* 60 - 89 mL/min/1.73m2 Mildly to moderately decreased 45 - 59 mL/min/1.73m2 Moderately to severely decreased 30 - 44 mL/min/1.73m2 Severely decreased 15 - 29 mL/min/1.73m2 Kidney Failure < 15 mL/min/1.73m2 *Relative to young adult level Estimated glomerular filtration rate is determined by the 2020 CKD-EPI equation recommended by the National Kidney Foundation (A Unifying Approach to GFR Estimation: Recommendations of the NKF-ASK Task Force on Reassessing the Inclusion of Race in Diagnosing Kidney Disease, JASN 202). The CKD-EPI equation should not be used for patients with unstable renal function and has not been validated in children and those over 70. Current interpretive data was last reviewed 2021. Blood 11/13/2023 1:25 PM PAPER CLEANER 11/13/2023 8:18 PM PAPER CLEANER us Marcella Wall MD LAB BLOOD ORDERABLES Final Resul t Performing Organization Address [facility] Co de Phone Number [facility] [place] [address] Department [place] [address] * (ABNORMAL) POCT hemoglobin A1c (11/13/2023 12:40 PM PAPER CLEANER) Hemoglobin A1C, POC 5.9 % Blood spot 11/13/2023 12:4 0 PM PAPER CLEANER Marcella Wall MD POINT OF CARE TEST [...] in albumin excretion as follows: Albuminuria Category Result (mcg/mg creatinine) Normal to Mildly increased <30 Moderately increased 30-299 Severely increased > OR = 300 The ADA recommends that at least two of three specimens collected within a 3-6 month period be abnormal before considering a patient to be within a diagnostic category. Urine 05/30/2021 10:2 9 AM CDT 05/30/2021 10:30 AM CDT Marcella Wall MD LAB URINE ORDERABLES Final Resul t Performing Organization Address [facility]/ZIP Co de Phone Number [facility] [address] [phone] * Diabetic Eye Exam (11/08/2018) Ana Espana MD HEALTH MAINTENANCE Edited Result - Final from Last 3 Months or Most Recently Relevant to Health Maintenance Insurance MEDICARE Member Subscriber Plan / Payer (Ef fective 2010-Present) Name:LAURA SPANGLER Member ID:[id number] Relation to Subscriber:Self Name:Laura Spangler Subscriber ID:[id number] Payer ID:[id number] Group ID:Not on file Type:MEDICARE TRADITIONAL Address: [place] [address] MEDICARE COMMERCIAL [facility] MEDICARE LOCAL [facility] H & W MCR SUPPLEMENT Advance Directives For more information, please contact: [phone] Documents on File Type Date Recorded Patient Work Checker Expl anation ADVANCE DIRECTIVE 05/29/2024 2:38 PM POWER OF NAUTICAL INSTRUMENT MECHANIC-MEDICAL Care Teams Intramural Director Relationship Specialty Start Date End Date Ronald Payne MD PCP - General Family Medicine 06/16/19
--- OUTSIDE RECORDS SUMMARY | 2024-10-27 12:48 | XMS_ITS | Clinical Summary ---
Author Organization [facility] [address] Address [address] [place] [address] Care Team Providers Care Youth Director Name Role Phone Ronald Payne MD Primary Care Provider [phone] Allergies No known active allergies Medications aspirin [...] 05/02/2018 Assessment & Plan (11/13/2023 1:19 PM PATIENT SERVICES SPECIALIST): Chronic, with LDL at goal Continue atorvastatin 20 mg daily Assessment & Plan (11/09/2022 12:09 PM PATIENT SERVICES SPECIALIST): Chronic, well controlled Low fat Low cholesterol diet Continue statin therapy with Atorvastatin Assessment & Plan (11/10/2021 10:29 AM PATIENT SERVICES SPECIALIST): Chronic, well controlled Continue current meds Assessment & Plan (04/28/2021 1:13 PM CDT): Lipids were checked today They seem to be at goal Continue with atorvastatin Assessment & Plan (10/21/2020 2:57 PM PATIENT SERVICES SPECIALIST): At goal on current medications. Continue statin [...] goal Assessment & Plan (11/12/2018 10:59 AM PATIENT SERVICES SPECIALIST): Goal of treatment , LDL cholesterol less [...] Old myocardial infarction 02/23/2015 Overview (12/14/2016): Old [place] (myocardial infarction) Keratosis, senilis 02/10/2015 Coronary arteriosclerosis in [place] artery 01/24 Overview (12/15/2016): CRNRY ATHRSCL NATVE VSSL Assessment & Plan (05/25/2017 5:11 PM CDT): 2008: IMI and RCA stent 03/2016: Lexiscan negative, EF 56% Stable without angina History of substance abuse ([facility]/HCC) 01/24/2014 Overview (12/16/2016): HISTORY OF TOBACCO USE Type 2 diabetes mellitus 08/26/2013 Overview (12/15/2016): DMII WO CMP UNCNTRLD Assessment & Plan (11/13/2023 1:18 PM PATIENT SERVICES SPECIALIST): Chronic, well-controlled Continue Jardiance 10 mg daily Importance of diet and exercise was emphasized Assessment & Plan (11/09/2022 12:08 PM PATIENT SERVICES SPECIALIST): Hba1c was Lab Results Component Value Date HGBA1C 6.2 11/09/2022 today, indicating adequate DM control Goal Hba1c and blood glucose explained Diet and exercise were advised Adjustment to medications: continue Jardiance Assessment & Plan (11/10/2021 10:29 AM PATIENT SERVICES SPECIALIST): Hba1c was Lab Results Component Value Date [...] Jardiance Assessment & Plan (10/21/2020 2:58 PM PATIENT SERVICES SPECIALIST): A1c 5.7 without hypoglycemia. No change to [...] Jardiance Assessment & Plan (11/12/2018 10:59 AM PATIENT SERVICES SPECIALIST): Hba1c was Lab Results Component Value Date [...] recommended Assessment & Plan (10/30/2017 2:45 PM PATIENT SERVICES SPECIALIST): Hba1c was 6.0 today, indicating proper DM [...] due to type 2 di abetes mellitus ([facility]) 07/12/2021 08/19/2023 Need for immunization against influenza 06/06/2016 06/24/2019 Disorder of lung 06/05/2016 06/24/2019 Former smoker 05/31/2016 05/25/2017 Overview (12/16/2016): Former smoker Hypertension associated with diabetes 03/27/2016 08/06/2023 Overview (12/14/2016): Essential hypertension Assessment & Plan (11/09/2022 12:08 PM PATIENT SERVICES SPECIALIST): Chronic, well controlled Importance of low salt diet and exercise were discussed Continue current meds including Ramipril Update MA Assessment & Plan (11/10/2021 10:33 AM PATIENT SERVICES SPECIALIST): Chronic, well controlled Continue current meds Assessment & Plan (04/28/2021 1:12 PM CDT): Adequately controlled Continue with ramipril Check microalbumin Assessment & Plan (10/21/2020 2:57 PM PATIENT SERVICES SPECIALIST): Controlled on current medications. Continue plan. 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 Assessment & Plan (06/19/2019 10:16 AM CDT): Goal blood pressure is less than 140/85 Low salt diet recommended Daily aerobic exercise Continue current meds, including ESTEFANIA-I or ARB Will check microalbumin Assessment & Plan (11/12/2018 10:59 AM PATIENT SERVICES SPECIALIST): Goal blood pressure is less than 140/85 Low salt diet recommended Daily aerobic exercise Continue current meds, including ESTEFANIA-I or ARB Assessment & Plan (10/30/2017 2:44 PM PATIENT SERVICES SPECIALIST): Goal blood pressure is less than 140/85 [...] EF 40-45% at the time of his OR, now up to 56%, doing well Tobacco [...] NEC/NOS Assessment & Plan (10/30/2017 2:44 PM PATIENT SERVICES SPECIALIST): Goal of treatment , LDL cholesterol less [...] Department Care Team Description 09/27/2024 9:30 AM PATIENT SERVICES SPECIALIST Telemedicine [facility] Medical Group Virtual Care [address] [place] [phone] Litzy Jett NP COPD with acute exacerbation (HCC) (Primary Dx) 09/27/2024 Patient Self-Triage [facility] HealthCare/ Physicians [address] [place] [address] Mychart, Generic Provider 08/11/2024 10:30 AM PATIENT SERVICES SPECIALIST Office Visit [facility] Medical [facility] Cardiology [address] [place] [address] Destinee Saldivar NP Coronary arteriosclerosis in [place] artery; Hyperlipidemia associated with type 2 diabetes mellitus (HCC); Lipid screening; 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) 08/01/2024 Telephone [facility] Ophthalmology [facility] Outpatient Health [address] [place] [address] Samuel Malone MD from Last 3 Months Immunizations Immunization Administration Dates Next Due Influenza, [...] on file Legal Sex Male 12:14 AM PATIENT SERVICES SPECIALIST Gender Identity Not on file Sexual Orientation Not on file Obstetrics History Last Filed Vital Signs Vital Sign Reading Time Taken Comments Blood Pressure 96/52 08/11/2024 10:32 AM PATIENT SERVICES SPECIALIST Pulse 74 08/11/2024 10:32 AM PATIENT SERVICES SPECIALIST Temperature 35.8 C (96.4 F) 05/27/2024 9:44 AM CDT Respiratory Rate 16 05/27/2024 1:50 PM CDT Oxygen Saturation 95% 08/11/2024 10:32 AM PATIENT SERVICES SPECIALIST Inhaled Oxygen Concentration - - Weight 64.4 kg (142 lb) 08/11/2024 10:32 AM PATIENT SERVICES SPECIALIST Height 167.6 cm (5' 6 ) 08/11/2024 10:32 AM PATIENT SERVICES SPECIALIST Body Mass Index 22.92 08/11/2024 10:32 AM PATIENT SERVICES SPECIALIST Plan of Treatment Health Maintenance Due Date [...] history exists Medical Devices Implanted Type Area Hard Candy Spinner Device Identifier Shelf Expiration Date Model / Serial / Lot Stent Implanted:Qty: 1 N/A: Heart Procedures Procedure Name Priority Date/Time Associated Diagnosis Comments POCT LIPID PANEL Routine 08/11/2024 10:3 7 AM PATIENT SERVICES SPECIALIST Lipid screening EGFR Routine 11/13/2023 1:25 PM PATIENT SERVICES SPECIALIST Type 2 diabetes mellitus with hyperglycemia, without long-term current use of insulin ([facility]) ([facility]) POCT HEMOGLOBIN A1C Routine 11/13/2023 1 2:40 PM PATIENT SERVICES SPECIALIST Type 2 diabetes mellitus with hyperglycemia, without long-term current use of insulin ([facility]) ([facility]) ALBUMIN CREATININE RATIO, URINE Routine 05/30/2021 10:29 AM CDT Hypertension associated with diabetes ([facility]) DIABETIC EYE EXAM Routine 11/08/2018 from Last 3 Months or Most Recently Relevant to Health Maintenance Results * POCT lipid panel (08/11/2024 10:37 AM PATIENT SERVICES SPECIALIST) Cholesterol, POC 139 mg/dL HDL, POC 48 mg/dL Triglycerides, POC 80 mg/dL LDL Cholesterol POC 75 mg/dL Chol/HDL Ratio, POC 1.6 Non-HDL Cholesterol, POC 91 mg/dL Cholesterol Total, POC 139 mg/dL Capillary blood 08/11/2024 1 0:37 AM PATIENT SERVICES SPECIALIST Destinee Saldivar NP POINT OF CARE TEST ORDERA BLES Final Result * eGFR (11/13/2023 1:25 PM PATIENT SERVICES SPECIALIST) eGFR 50 mL/min/1. 73 m2 [facility] [...] last reviewed 2021. Blood 11/13/2023 1:25 PM PATIENT SERVICES SPECIALIST 11/13/2023 8:18 PM PATIENT SERVICES SPECIALIST us Marcella Wall MD LAB BLOOD ORDERABLES Final Resul t Performing Organization Address City/[facility]/ZIP Co de Phone Number [facility] [address] Department [place] [address] * (ABNORMAL) POCT hemoglobin A1c (11/13/2023 12:40 PM PATIENT SERVICES SPECIALIST) Hemoglobin A1C, POC 5.9 % Blood spot 11/13/2023 12:4 0 PM PATIENT SERVICES SPECIALIST Result [facility] us Marcella Wall MD POINT OF CARE [...] AM CDT 05/30/2021 10:30 AM CDT Result Sally Wall MD LAB URINE ORDERABLES Final Resul t [facility] [address] [phone] * Diabetic Eye Exam (11/08/2018) us Historical Provider HEALTH MAINTENANCE Edited Result - Final from Last 3 Months or Most Recently Relevant to Health Maintenance Insurance MEDICARE MEDICARE COMMERCIAL GENERIC MEDICARE LOCAL [facility] H & W MCR SUPPLEMENT Advance Directives For more information, please contact: [phone] Documents on File Type Date Recorded Patient Watch Assembly Instructor Expl anation ADVANCE DIRECTIVE 05/29/2024 2:38 PM POWER OF LCAC RADAR OPERATOR/NAVIGATOR-MEDICAL Care Teams Youth Director Relationship Specialty Start Date End Date Ronald Payne MD PCP - General Family Medicine 06/16/19
== END 2024-10-27 09:54 | disposition home or self-care (01) ==
PROVIDERS: PCP Family Medicine; Visit Provider Physician Assistant Medical
DX: J43.9 Emphysema, unspecified (principal); B33.8 Other specified viral diseases
CPT/HCPCS: 71046

== ENCOUNTER 2024-11-21 09:00 | Outpatient (CLI) | payer MEDICARE, OTHER, SELFPAY ==
--- NOTE | ~2024-11-21 | XR_ITS ---
Clinical Indication: Pneumonia PA and lateral views of the chest: Comparison: 10/27/2024 Findings: COPD pattern present. Stable calcified right basilar granuloma. Stable additional probable RENUKA nodule at the right upper lobe.. Cardiomediastinal silhouette is within normal limits. Bones an d soft tissues are unremarkable. Impression: No definite acute abnormality. COPD and probable calcified right pulmonary nodule/granuloma is. Reviewed, dictated and finalized at location . Impression: No definite acute abnormality. COPD and probable calcified right pulmonary nodu le/granuloma is.
--- OUTSIDE RECORDS SUMMARY | 2024-11-21 09:34 | XMS_ITS | Encounter Summary ---
Author Organization [facility] Healthcare Address [address] [place] [address] Care Team Providers Care Experimental Flight Test Mechanic Name Role Phone Ronald Payne MD Primary Care Provider [phone] Encounter Details Date Type Department Care Team (Late st Contact Info) Description 11/20/2024 Results Follow-Up [facility] Medical Group Diabetes and Endocrinology [address] [place] [address] Gracie Yanes, BOOTH CASHIER [address] [facility] [address] [place] [address] Social History Tobacco Use Types Packs/Day Years Used Date Smoking Tobacco: Every Day Cigarettes 2 63.2 Started: 1961 Smokeless Tobacco: Never Alcohol Use Standard Drinks/Week [...] on file Legal Sex Male 12:14 AM TAX ANALYST Gender Identity Not on file Sexual Orientation Not on file documented as of this encounter Miscellaneous Notes * Result Encounter Note - Gracie Yanes NP - 11/20/2024 11:32 AM CDT SEE LETTER SENT VIA MAIL: Vel Spangler, Good to see you this week. Your labs are stable. Please see below for lab result explanations. Please review below recommendations to help improve any abnormal readings. GFR (kidney filtration rate, normal is over 90): 49 (WAS 50, STABLE). Shows stage 3a chronic kidneydisease. Keep the blood pressure and blood sugar under good control. Avoid NSAIDs (advil, Aleve, motrin, naproxen, ibuprofen). Stay well hydrated. Your lipid panel explanation below: -total cholesterol should be below 200; you are 190 (NORMAL, INCREASED FROM 122). Please watch fried, fast, fatty, high-calorie foods and red meats to help lower. Also increase physical activity. -HDL (healthy cholesterol) should be 45-60; the higher this number the better. You are 77 (GREAT, IMPROVED FROM 47). Increased activity helps increase this reading. HDL helps pull out LDL from circulating in your blood. -LDL (lousy cholesterol) should be less than 100; you are 97 (TOO HIGH, WOULD LIKE IT TO BE AROUND 70 FOR DIABETIC). An elevated HDL helps negate any elevated LDL. Please watch fried, fast, fatty, high-calorie foods and red meats to lower LDL. LDL is what causes blockages in arteries. -triglycerides should be less than 150. You are 87 (NORMAL, WAS 76). This is the carbohydrate/sugarcomponent of the lipid panel. CMP (electrolytes, kidney & liver functions): ABNORMAL KIDNEY FUNCTIONS -BUN & Creatinine are both elevated. See above GFR section for recommendations. Urine creatinine albumin (0-29): 133 (HIGH). Shows excess protein in urine. Please stay well hydrated. We'll continue to monitor this result. documented in this encounter Plan of Treatment Not on file documented as of this encounter Visit Diagnoses Not on filedocumented in this encounter Care Teams Experimental Flight Test Mechanic Relationship Specialty Start Date End Date Ronald Payne MD PCP - General Family Medicine 06/16/19 documented as of this encounter
--- OUTSIDE RECORDS SUMMARY | 2024-11-21 09:34 | XMS_ITS | Referral Summary ---
Author Organization [facility] [address] [place] [address] Care Team Providers Care Recoil Spring Winder Name Role Phone Ronald Payne MD Primary Care Provider [phone] Encounters Date Type Department Care Team Description 11/20/2024 Results Follow-Up [facility] Diabetes and Endocrinology [address] [place] [phone] Gracie Yanes NP 11/18/2024 1:37 PM CDT - 11/18/2024 11:59 PM CDT Hospital Encounter [address] [address] Type 2 diabetes mellitus with hyperglycemia, without long-term current use of insulin (HCC); Hyperlipidemia associated with type 2 diabetes mellitus (HCC) Discharge Disposition: Discharge to home or self care 11/18/2024 1:[address] 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 [address] [place] [address] Mychart, Generic Provider from Last 3 Months Allergies No known [...] needed 0 0 8 Active blood-glucose meter kitIndications :Type 2 diabetes mellitus with hyperglycemia, without long-term current use of insulin (HCC) Use to test once daily 1 each 7 Active blood glucose diagnostic stripIndicatio ns:Type 2 diabetes mellitus with hyperglycemia, without long-term current use of insulin (HCC) Use to test once daily 100 each 2 7 Active VENTOLIN HFA 90 mcg/actuation inhaler INHALE 2 PUFFS BY MOUTH FOUR TIMES DAILY NEEDED 1 Inhaler 5 9 Active Trelegy Ellipta 100-62.5-25 mcg inhaler TAKE 1 PUFF BY MOUTH EVERY DAY 1 each 5 1 Active mirtazapine (REMERON) 15 mg tabletIndicati ons:sleep Take 1 tablet (15 mg total) by mouth nightly as needed (sleep) 1 Active atorvastatin (LIPITOR) 40 mg tablet Take 1 tablet (40 mg total) by mouth daily 90 tablet 3 4 Active ramipriL (ALTACE) 5 mg capsule TAKE 1 CAPSULE BY MOUTH EVERY DAY 90 capsule 3 4 Active Additional Information Patient taking differently:oralNightly, Informant: Child, Reported on 11/18/2024 triamcinolone (KENALOG) 0.1 % ointment Apply topically 2 (two) times a day 4 Active albuterol HFA (PROVENTIL HFA,VENTOLIN HFA,PROAIR HFA) 90 mcg/actuation inhaler Inhale 2 puffs every 6 (six) hours as needed for wheezing or shortness of breath 1 each 5 Active benzonatate (TESSALON) 200 mg capsule TAKE 1 CAPSULE BY MOUTH THREE TIMES A DAY NEEDED FOR COUGH 5 Active empagliflozin (Jardiance) 10 mg tabletIndicati ons:Chronic Kidney Disease,type 2 diabetes mellitus Take 1 tablet (10 mg total) by mouth nightly 90 tablet 3 5 11/19/19 26 Active empagliflozin (Jardiance) 10 mg tablet Take 1 tablet (10 mg total) by mouth daily 90 tablet 3 4 11/19/19 25 Discontin ued(Reord er) cefuroxime (CEFTIN) 500 mg tablet TAKE ONE TABLET BY MOUTH EVERY 12 HOURS FOR 10 DAYS 5 11/19/19 25 Discontin ued(Thera py completed ) doxycycline 100 mg tablet Take 1 tablet/capsule (100 mg total) by mouth every 12 (twelve) hours 5 11/19/19 25 Discontin ued(Thera py completed ) predniSONE (DELTASONE) 20 mg tablet TAKE 2 TABS ORALLY DAILY AT 8AM 40 MG X 3 DAYS 20 MG X 3 DAYS THEN DISCONTINUE 5 11/19/19 25 Discontin ued(Thera py completed ) Active Problems Problem Noted Date Diagnosed Date 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 Nephropathy: On ESTEFANIA-I / ARB s : Yes. Ramipril 5mg. Last MA: 05/30/21 (142). Last creat/GFR: 11/13/23 GFR=50, CR=1.43. Will update labs. Does not mychart. Verified phone #/address to contact re: results. Essential hypertension 06/24/2019 Caregiver stress 06/24/2019 Hyperlipidemia associated with type 2 diabetes dutch magdaleno 05/02/2018 Assessment & Plan (11/18/2024 1:35 PM CDT): Chronic problem. Currently taking Atorvastatin 40mg. Last lipid panel: 08/11/24 LDL=75, TG=80. Will update labs. Does not mychart. Verified phone #/address to contact re: results. Assessment & Plan (11/13/2023 1:19 PM CUSTOMER BUSINESS MANAGER): Chronic, with LDL at goal Continue atorvastatin 20 mg daily Assessment & Plan (11/09/2022 12:09 PM CUSTOMER BUSINESS MANAGER): Chronic, well controlled Low fat Low cholesterol diet Continue statin therapy with Atorvastatin Assessment & Plan (11/10/2021 10:29 AM CUSTOMER BUSINESS MANAGER): Chronic, well controlled Continue current meds Assessment & Plan (04/28/2021 1:13 PM CDT): Lipids were checked today They seem to be at goal Continue with atorvastatin Assessment & Plan (10/21/2020 2:57 PM CUSTOMER BUSINESS MANAGER): At goal on current medications. Continue statin [...] goal Assessment & Plan (11/12/2018 10:59 AM CUSTOMER BUSINESS MANAGER): Goal of treatment , LDL cholesterol less [...] Old myocardial infarction 02/23/2015 Overview (12/14/2016): Old [place] (myocardial infarction) Keratosis, senilis 02/10/2015 Coronary arteriosclerosis in [place] artery 01/24 Overview (12/15/2016): CRNRY ATHRSCL NATVE VSSL Assessment & Plan (05/25/2017 5:11 PM CDT): 2008: IMI and RCA stent 03/2016: Lexiscan negative, EF 56% Stable without angina History of substance abuse 01/24/2014 Overview (12/16/2016): HISTORY OF TOBACCO USE Type 2 diabetes mellitus 08/26/2013 Overview (12/15/2016): DMII WO CMP UNCNTRLD Assessment & Plan (11/18/2024 1:35 PM CDT): Chronic problem. A1c increased slightly from 5.9% 11/13/23 to now 6.1%. Current medications: Jardiance 10mg daily DM eye exam 2023 [facility] in [place]. Letter sent to get copy of report. Will update labs. Does not mychart. Verified phone #/address to contact re: results. Discussed with Laura Spangler: Strive for regular exercise (30min most days) and diet (get at least 4-5 servings of fruit and veggies daily, avoid processed foods, increase lean protein intake and decrease carb portions as well as fruit juices, regular soda & desserts). Watch carbs and simple sugars. Check the feet daily for skin breakdown and infection Assessment & Plan (11/13/2023 1:18 PM CUSTOMER BUSINESS MANAGER): Chronic, well-controlled Continue Jardiance 10 mg daily Importance of diet and exercise was emphasized Assessment & Plan (11/09/2022 12:08 PM CUSTOMER BUSINESS MANAGER): Hba1c was Lab Results Component Value Date HGBA1C 6.2 11/09/2022 today, indicating adequate DM control Goal Hba1c and blood glucose explained Diet and exercise were advised Adjustment to medications: continue Jardiance Assessment & Plan (11/10/2021 10:29 AM CUSTOMER BUSINESS MANAGER): Hba1c was Lab Results Component Value Date [...] Jardiance Assessment & Plan (10/21/2020 2:58 PM CUSTOMER BUSINESS MANAGER): A1c 5.7 without hypoglycemia. No change to [...] Jardiance Assessment & Plan (11/12/2018 10:59 AM CUSTOMER BUSINESS MANAGER): Hba1c was Lab Results Component Value Date [...] recommended Assessment & Plan (10/30/2017 2:45 PM CUSTOMER BUSINESS MANAGER): Hba1c was 6.0 today, indicating proper DM [...] CKD stage 2 due to type 2 diabetes mellitus 07/12/2021 08/19/2023 Need for immunization against influenza 06/06/2016 06/24/2019 Disorder of lung 06/05/2016 06/24/2019 Former smoker 05/31/2016 05/25/2017 Overview (12/16/2016): Former smoker Hypertension associated with diabetes 03/27/2016 08/06/2023 Overview (12/14/2016): Essential hypertension Assessment & Plan (11/09/2022 12:08 PM CUSTOMER BUSINESS MANAGER): Chronic, well controlled Importance of low salt diet and exercise were discussed Continue current meds including Ramipril Update MA Assessment & Plan (11/10/2021 10:33 AM CUSTOMER BUSINESS MANAGER): Chronic, well controlled Continue current meds Assessment & Plan (04/28/2021 1:12 PM CDT): Adequately controlled Continue with ramipril Check microalbumin Assessment & Plan (10/21/2020 2:57 PM CUSTOMER BUSINESS MANAGER): Controlled on current medications. Continue plan. 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..] NEC/NOS Assessment & Plan (10/30/2017 2:44 PM CUSTOMER BUSINESS MANAGER): Goal of treatment , LDL cholesterol less [...] on file Legal Sex Male 12:14 AM CUSTOMER BUSINESS MANAGER Gender Identity Not on file Sexual Orientation Not on file Last Filed Vital Signs Vital Sign Reading Time Taken Comments Blood Pressure 122/72 11/18/2024 12:58 PM CDT Pulse 82 11/18/2024 12:58 PM CDT Temperature 35.8 C (96.4 F) 05/27/2024 9:44 AM CDT Respiratory Rate 18 11/18/2024 12:58 PM CDT Oxygen Saturation 95% 08/11/2024 10:32 AM CUSTOMER BUSINESS MANAGER Inhaled Oxygen Concentration - - Weight 63.5 kg (140 lb) 11/18/2024 12:58 PM CDT Height 167.6 cm (5' 5.98 ) 11/18/2024 12:58 PM C DT Body Mass Index 22.61 11/18/2024 12:58 PM CDT Plan of Treatment Not on file Medical Devices Implanted Type Area Spa Director/Finance Device Identifier Shelf Expiration Date Model / Serial / Lot Stent Implanted:Qty: 1 N/A: Heart Procedures Procedure Name Priority Date/Time Associated Diagnosis Comments EGFR Routine 11/18/2024 1:37 PM CDT Type 2 diabetes mellitus with hyperglycemia, without long-term current use of insulin (HCC) LIPID PANEL Routine 11/18/2024 1:37 PM CDT Type 2 diabetes mellitus with hyperglycemia, without long-term current use of insulin (HCC) Hyperlipidemia associated with type 2 diabetes mellitus (HCC) ALBUMIN CREATININE RATIO, URINE Routine 11/18/2024 1:37 PM CDT Type 2 diabetes mellitus with hyperglycemia, without long-term current use of insulin (HCC) COMPREHENSIVE METABOLIC PANEL Routine 11/18/2024 1:37 PM CDT Type 2 diabetes mellitus with hyperglycemia, without long-term current use of insulin (HCC) POCT GLUCOSE Routine 11/18/2024 1:00 PM CDT Type 2 diabetes mellitus with hyperglycemia, without long-term current use of insulin (HCC) POCT HEMOGLOBIN A1C Routine 11/18/2024 1 :00 PM CDT Type 2 diabetes mellitus with hyperglycemia, without long-term current use of insulin (HCC) DIABETIC EYE EXAM Routine 11/08/2018 from Last 3 Months or Most Recently Relevant to Health Maintenance Results * (ABNORMAL) eGFR (11/18/2024 1:37 PM CDT) [facility] Signature eGFR 49(L) >=60 mL/min/1. 73 m2 Comment: Interpretive Data Reference Interval Normal >/= [...] interpretive data was last reviewed 2021. Blood 11/18/2024 1:37 PM CDT 11/18/2024 9:10 PM CDT Gracie Yanes POLICE MANAGER LAB BLOOD ORDERABLES Deyanira l Result Performing Organization Address [facility] de Phone Number [facility] [phone] [place] [address] * (ABNORMAL) Albumin Creatinine Ratio, Urine (11/18/2024 1:37 PM CDT) Albumin Ur 152.5 mg/L Comment: Interpretive Data No reference range established. Current interpretive data was last revised 2019. Creatinine Ur 114.6 mg/dL [facility] Comment: Interpretive Data No reference range established. Current interpretive data was last revised 2019. Albumin Creatinine Ratio, Ur 133(H) 1 - 29 mg/g [facility] Urine 11/18/2024 1:37 PM CDT 11/18/2024 9:01 PM CDT Gracie Yanes POLICE MANAGER LAB URINE ORDERABLES Deyanira l Result Performing Organization Address [facility] Co de Phone Number [facility] [id number] [place] [address] * Lipid panel (11/18/2024 1:37 PM CDT) Cholesterol 190 30 - 199 mg/dL Comment: Interpretive Data Ages < or = 19 years Acceptable: <170 mg/dL Borderline high: 170-199 mg/dL High: >or= 200 mg/dL Ages > or = 20 years Desirable: <200 mg/dL Borderline high: 200-239 mg/dL High: >or= 240 mg/dL Literature References: 1. Expert Panel on Integrated Guidelines for Cardiovascular Health and Risk Reduction in Children and Adolescents. Pediatrics 2011;128:S213 2. NCEP Expert Panel. Circulation 2004;110:227 Current Interpretive Data was last revised on 2018. Triglycerides 87 <=149 mg/dL [facility] Comment: Interpretive Data Ages < or = 9 years Acceptable: <75 mg/dL Borderline high: 75-99 mg/dL High: >or= 100 mg/dL Ages 10 to 20 years Acceptable: <90 mg/dL Borderline high: 90-129 mg/dL High: >or= 130 mg/dL Ages > or = 20 years Desirable: <150 mg/dL Borderline high: 150-199 mg/dL High: 200-499 mg/dL Very high: >or= 499 mg/dL Literature References: 1. Expert Panel on Integrated Guidelines for Cardiovascular Health and Risk Reduction in Children and Adolescents. Pediatrics 2011;128:S213 2. NCEP Expert Panel. Circulation 2004;110:227 Current Interpretive Data was last revised on 2018. HDL 77 >=40 mg/dL [facility] [place] Comment: Interpretive Data Ages < or = 19 years Acceptable: >45 mg/dL Borderline low: 40-45 mg/dL Low: <40 mg/dL Ages > or = 20 years Desirable: >or= 60 mg/dL Low: <40 mg/dL Literature References: 1. Expert Panel on Integrated Guidelines for Cardiovascular Health and Risk Reduction in Children and Adolescents. Pediatrics 2011;128:S213 2. NCEP Expert Panel. Circulation 2004;110:227 Current Interpretive Data was last revised on 2018. LDL, calculated 97 <=129 mg/dL [facility] Comment: Interpretive Data Ages < or = 19 years Acceptable: <110 mg/dL Borderline high: 110-129 mg/dL High: >or= 130 mg/dL Ages > or = 20 years Optimal: <100 mg/dL Near optimal: 100-129 mg/dL Borderline high: 130-159 mg/dL High: >160 mg/dL Calculated using the Leach LDL-C estimating equation. This equation was implemented on 2024. Prior to this date LDL-C was estimated using the Friedewald equation. Literature References: 1. Expert Panel on Integrated Guidelines for Cardiovascular Health and Risk Reduction in Children and Adolescents. Pediatrics 2011;128:S213 2. NCEP Expert Panel. Circulation 2004;110:227 3. Hayn M et al. [place] Cardiol. 2020 January 08;5(5):540-548. doi: 10.1001/[email or web address] Current Interpretive Data was last revised on 2024. Non-HDL Cholesterol 113 mg/dL [facility] Comment: Interpretive Data Ages < or = 19 years Acceptable: <120 mg/dL Borderline high: 120-144 mg/dL High: >145 mg/dL Ages > or = 20 years When triglycerides are >200 mg/dL, Non-HDL cholesterol is a secondary target of therapy with treatment goals that are 30 mg/dL greater than the LDL cholesterol target. Literature References: 1. Expert Panel on Integrated Guidelines for Cardiovascular Health and Risk Reduction in Children and Adolescents. Pediatrics 2011;128:S213 2. NCEP Expert Panel. Circulation 2004;110:227 Current Interpretive Data was last revised on 2018. Chol/HDL ratio 2 [facility] Blood 11/18/2024 1:37 PM CDT 11/18/2024 9:01 PM CDT us Gracie Yanes NP LAB BLOOD ORDERABLES Deyanira sanchez Result [facility] [address] Department [place] [address] * (ABNORMAL) Comprehensive metabolic panel (11/18/2024 1:37 PM CDT) Sodium 136 135 - 145 mmol/L Potassium, pl 4.6 3.3 - 4.9 mmol/L [facility] Chloride 101 97 - 110 mmol/L [facility] CO2 23 22 - 32 mmol/L [facility] Anion gap 12 2 - 15 mmol/L [facility] BUN 42(H) 6 - 25 mg/dL [facility] Creatinine 1.45(H) 0.80 - 1.30 mg/dL [facility] Glucose 122 70 - 199 mg/dL [facility] Comment: Interpretive Data Fasting glucose >/= 126 mg/dl is diagnostic for diabetes. Fasting is defined as no caloric intake for at least 8 hours. Fasting glucose between 100 mg/dl to 125 mg/dl is diagnostic of prediabetes. In a patient with classic symptoms of hyperglycemia or hyperglycemic crisis, a random glucose >/= 200 mg/dl is diagnostic for diabetes. In the absence of unequivocal hyperglycemia, results should be confirmed by repeat testing. The classification and Diagnosis of Diabetes Diabetes Care 2021; 46: S19-S40. Current interpretive data was last revised 2022. Calcium 9.9 8.5 - 10.3 mg/dL [facility] Bilirubin, total 0.6 0.1 - 1.2 mg/dL [facility] Protein, pl 7.3 6.5 - 8.5 g/dL [facility] Albumin 4.2 3.5 - 5.0 g/dL [facility] Alk phos 83 40 - 130 Units/L [facility] ALT 21 7 - 55 Units/L [facility] AST 32 10 - 50 Units/L [facility] Blood 11/18/2024 1:37 PM CDT 11/18/2024 9:01 PM CDT us Gracie Yanes POLICE MANAGER LAB BLOOD ORDERABLES Deyanira l Result [facility] [address] [place] [address] * (ABNORMAL) POCT hemoglobin A1c (11/18/2024 1:00 PM CDT) Hemoglobin A1C, POC 6.1 4.0 - 5.6 % Blood 11/18/2024 1:00 PM CDT us Gracie Yanes NP POINT OF CARE TEST ORDERA BLES Final Result * (ABNORMAL) POCT glucose (11/18/2024 1:00 PM CDT) Glucose Blood, POC 127 mg/dL Blood 11/18/2024 1:00 PM CDT us Gracie Yanes NP POINT OF CARE TEST ORDERA BLES Final Result * Diabetic Eye Exam (11/08/2018) us Historical Provider HEALTH MAINTENANCE Edited Result - Final from Last 3 Months or Most Recently Relevant to Health Maintenance Insurance MEDICARE MEDICARE Member Subscriber Plan / Payer (Ef fective 2010-Present) Name:Laura Spangler Member ID:[id number] Relation to Subscriber:Self Name:Laura Spangler Subscriber ID:[id number] Payer ID:[id number] Group ID:Not on file Type:MEDICARE TRADITIONAL Address: [place] [phone] COMMERCIAL GENERIC MEDICARE LOCAL [facility] H & W MCR SUPPLEMENT Advance Directives For more information, please contact: [phone] Documents on File Type Date Recorded Patient Auditing Specialist Expl anation ADVANCE DIRECTIVE 05/29/2024 2:38 PM [employer] Care Teams Recoil Spring Winder Relationship Specialty Start Date End Date Ronald Payne MD PCP - General Family Medicine 06/16/19
--- OUTSIDE RECORDS SUMMARY | 2024-11-21 09:34 | XMS_ITS | Clinical Summary ---
Author Organization [facility] [address] Address [address] [place] [address] Care Team Providers Care [facility] Name Role Phone Ronald Payne MD Primary [...] total) by mouth daily 90 tablet 3 03/05/202 4 Active ramipriL (ALTACE) 5 mg capsule [...] results. Assessment & Plan (11/13/2023 1:19 PM LEACHER): Chronic, with LDL at goal Continue atorvastatin 20 mg daily Assessment & Plan (11/09/2022 12:09 PM LEACHER): Chronic, well controlled Low fat Low cholesterol diet Continue statin therapy with Atorvastatin Assessment & Plan (11/10/2021 10:29 AM LEACHER): Chronic, well controlled Continue current meds Assessment & Plan (04/28/2021 1:13 PM CDT): Lipids were checked today They seem to be at goal Continue with atorvastatin Assessment & Plan (10/21/2020 2:57 PM LEACHER): At goal on current medications. 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 Letter sent to get copy of report. [...] infection Assessment & Plan (11/13/2023 1:18 PM LEACHER): Chronic, well-controlled Continue Jardiance 10 mg daily Importance of diet and exercise was emphasized Assessment & Plan (11/09/2022 12:08 PM LEACHER): Hba1c was Lab Results Component Value Date HGBA1C 6.2 11/09/2022 today, indicating adequate DM control Goal Hba1c and blood glucose explained Diet and exercise were advised Adjustment to medications: continue Jardiance Assessment & Plan (11/10/2021 10:29 AM LEACHER): Hba1c was Lab Results Component Value Date [...] Jardiance Assessment & Plan (10/21/2020 2:58 PM LEACHER): A1c 5.7 without hypoglycemia. No change to [...] Jardiance Assessment & Plan (11/12/2018 10:59 AM LEACHER): Hba1c was Lab Results Component Value Date [...] recommended Assessment & Plan (10/30/2017 2:45 PM LEACHER): Hba1c was 6.0 today, indicating proper DM [...] hypertension Assessment & Plan (11/09/2022 12:08 PM LEACHER): Chronic, well controlled Importance of low salt diet and exercise were discussed Continue current meds including Ramipril Update MA Assessment & Plan (11/10/2021 10:33 AM LEACHER): Chronic, well controlled Continue current meds Assessment & Plan (04/28/2021 1:12 PM CDT): Adequately controlled Continue with ramipril Check microalbumin Assessment & Plan (10/21/2020 2:57 PM LEACHER): Controlled on current medications. Continue plan. 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 Assessment & Plan (06/19/2019 10:16 AM CDT): Goal blood pressure is less than 140/85 Low salt diet recommended Daily aerobic exercise Continue current meds, including ESTEFANIA-I or ARB Will check microalbumin Assessment & Plan (11/12/2018 10:59 AM LEACHER): Goal blood pressure is less than 140/85 Low salt diet recommended Daily aerobic exercise Continue current meds, including ESTEFANIA-I or ARB Assessment & Plan (10/30/2017 2:44 PM LEACHER): Goal blood pressure is less than 140/85 [...] EF 40-45% at the time of his MS, now up to 56%, doing well Tobacco [...] NEC/NOS Assessment & Plan (10/30/2017 2:44 PM LEACHER): Goal of treatment , LDL cholesterol less [...] Department Care Team Description 11/20/2024 Results Follow-Up [facility] Diabetes and Endocrinology [address] [place] [phone] Gracie Yanes NP 11/18/2024 1:37 PM CDT - 11/18/2024 11:59 PM CDT Hospital Encounter [address] [address] Type 2 diabetes mellitus with hyperglycemia, without long-term current use of insulin (HCC); Hyperlipidemia associated with type 2 diabetes mellitus (HCC) Discharge Disposition: Discharge to home or self care 11/18/2024 1:30 PM CDT Lab [facility] Outpatient Lab at [address] [phone] Hyperlipidemia associated with type 2 diabetes mellitus (HCC) (Primary Dx) 11/18/2024 1:00 PM CDT Office Visit [facility] Diabetes and Endocrinology [address] [place] [phone] Gracie Yanes NP Type 2 diabetes mellitus with hyperglycemia, without long-term current use of insulin (HCC) (Primary Dx); Hyperlipidemia associated with type 2 diabetes mellitus (HCC); 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) 09/27/2024 9:30 AM LEACHER Telemedicine [facility] Care [address] [place] [phone] Litzy Jett NP COPD with acute exacerbation (HCC) (Primary Dx) 09/27/2024 Patient Self-Triage [facility] [address] [place] [address] Mychart, Generic Provider from Last 3 Months Immunizations Immunization Administration [...] on file Legal Sex Male 12:14 AM LEACHER Gender Identity Not on file Sexual Orientation Not on file Obstetrics History Last Filed Vital Signs Vital Sign Reading Time Taken Comments Blood Pressure 122/72 11/18/2024 12:58 PM CDT Pulse 82 11/18/2024 12:58 PM CDT Temperature 35.8 C (96.4 F) 05/27/2024 9:44 AM CDT Respiratory Rate 18 11/18/2024 12:58 PM CDT Oxygen Saturation 95% 08/11/2024 10:32 AM LEACHER Inhaled Oxygen Concentration - - Weight 63.5 kg (140 lb) 11/18/2024 12:58 PM CDT Height 167.6 cm (5' 5.98 ) 11/18/2024 12:58 PM C DT Body Mass Index 22.61 11/18/2024 12:58 PM CDT Plan of Treatment Health Maintenance Due Date Last Done Comments Hepatitis C Screening 1945 DTaP/Tdap/Td Vaccine (1 - Tdap) 1956 Hepatitis B Screening 11/17/1963 Lung Cancer Screening 11/17/1995 Zoster Vaccine (1 of 2) 11/17/1995 Abdominal Aortic Aneurysm (A AA) Screen 2010 Well Visit 65+ 2010 Pneumococcal vaccine 65+ (2 of 2 - PPSV23) 10/24/2019 08/29/2019, 06/06/2016 Dilated Eye Exam 11/09/2019 11/08/2018, 11/08/2018 Depression Screening 03/04/2021 03/04/2020, 06/19/2019, 11/12/2018, Additional history exists Foot Exam 11/10/2023 11/09/2022, 08/05/2021, 10/21/2020, Additional history exists Covid-19 Vaccine (3 - 2023-2 5 season) 2024 12/08/2020, 11/09/2020 Influenza Vaccine (#1) 2024 11/19/2017, 2015 Hemoglobin A1C 05/21/2025 11/18/2024, 0301/2024, 11/09/2022, Additional history exists Fall Risk Assessment 05/27/2025 05/27/2024 Albumin Creatinine Ratio, Urine 11/18/2025 , 05/30/2021 Lipid Panel 11/18/2025 11/18/2024, 10/2023, 08/06/2023, Additional history exists eGFR 11/18/2025 11/18/2024, 01/2024, 07/28/2022, Additional history exists Medical Devices Implanted Type Area Cigarette Making Machine Catcher Device Identifier Shelf Expiration Date Model / [...] * (ABNORMAL) eGFR (11/18/2024 1:37 PM CDT) eGFR 49(L) >=60 mL/min/1. 73 m2 Comment: [...] 1:37 PM CDT 11/18/2024 9:10 PM CDT us Gracie Yanes NP LAB BLOOD ORDERABLES Deyanira l Result Performing Organization Address [facility] Co de Phone Number [facility] [address] [email or web address] [place], [place] [id number] * (ABNORMAL) Albumin Creatinine Ratio, Urine (11/18/2024 1:37 PM CDT) Albumin Ur 152.5 mg/L Comment: Interpretive Data No reference range established. Current interpretive data was last revised 2019. Creatinine Ur 114.6 mg/dL [facility] Comment: Interpretive Data No reference range established. Current interpretive data was last revised 2019. Albumin Creatinine Ratio, Ur 133(H) 1 - 29 mg/g [facility] Urine 11/18/2024 1:37 PM CDT 11/18/2024 9:01 PM CDT us Gracie Yanes NP LAB URINE ORDERABLES Deyanira l Result Performing Organization Address City/[facility]/ZIP Co de Phone Number [facility] [place] [address] Department [place] [address] * Lipid panel (11/18/2024 1:37 PM CDT) [...] on 2018. Triglycerides 87 <=149 mg/dL [facility] Comment: Interpretive Data Ages [...] mg/dL High: >160 mg/dL Calculated using the Hany LDL-C estimating equation. This equation was implemented on 2024. Prior to this date LDL-C was estimated using the Friedewald equation. Literature References: 1. Expert Panel on Integrated Guidelines for Cardiovascular Health and Risk Reduction in Children and Adolescents. Pediatrics 2011;128:S213 2. NCEP Expert Panel. Circulation 2004;110:227 3. Hany Howard et al. [place] Cardiol. 2020 January 08;5(5):540-548. [...] Gracie Yanes NP LAB BLOOD ORDERABLES Deyanira l Result [facility] [address] Department of Laboratories [place], [place] [id number] * (ABNORMAL) Comprehensive metabolic panel (11/18/2024 1:37 [...] Creatinine 1.45(H) 0.80 - 1.30 mg/dL [facility] Glucose 122 70 - 199 mg/dL [facility] Comment: Interpretive Data Fasting glucose >/= 126 [...] 2022. Calcium 9.9 8.5 - 10.3 mg/dL [facility] Bilirubin, total 0.6 0.1 - 1.2 mg/dL [facility] Protein, pl 7.3 6.5 - 8.5 g/dL [facility] Albumin 4.2 3.5 - 5.0 g/dL [facility] Alk phos 83 40 - 130 Units/L [facility] CH ALT 21 7 - 55 Units/L [facility] CH AST 32 10 - 50 Units/L [facility] Blood 11/18/2024 1:37 PM CDT 11/18/2024 9:01 PM CDT us Gracie Yanes NP LAB BLOOD ORDERABLES Deyanira l Result [facility] [address] Department [place] [address] * (ABNORMAL) POCT hemoglobin A1c (11/18/2024 1:00 PM CDT) Pathologist [facility] [place] Hemoglobin A1C, POC 6.1 4.0 - 5.6 % Blood 11/18/2024 1:00 PM CDT us Gracie Yanes NP POINT OF CARE TEST ORDERA BLES Final Result * (ABNORMAL) POCT glucose (11/18/2024 1:00 PM CDT) Glucose Blood, POC 127 mg/dL Blood 11/18/2024 1:00 PM CDT Gracie Yanes NP POINT OF CARE TEST ORDERA BLES Final Result * Diabetic Eye Exam (11/08/2018) Historical Provider HEALTH MAINTENANCE Edited Result - Final from Last 3 Months or Most Recently Relevant to Health Maintenance Insurance [employer] MEDICARE [place] [id number] [employer] SUPPLEMENT Advance Directives For more information, please contact: [phone] Documents on File Type Date Recorded 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
--- OUTSIDE RECORDS SUMMARY | 2024-11-21 09:34 | XMS_ITS | Encounter Summary ---
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
== END 2024-11-21 09:01 | disposition home or self-care (01) ==
PROVIDERS: PCP Family Medicine; Visit Provider Physician Assistant Medical
DX: J44.9 Chronic obstructive pulmonary disease, unspecified (principal); J18.9 Pneumonia, unspecified organism
CPT/HCPCS: 71046